=== PATIENT | female | born 1970 | race African-American/Black ===

== ENCOUNTER 2018-11-19 22:53 | Emergency (ER) | payer OTHER ==
[2018-11-19 23:13] VITALS: BP 98/64; PULSE 98; TEMP 98.9; BMI 23.3
--- NOTE | 2018-11-19 23:55 | PDOC ---
Attending Attestation - HPI HPI: This patient is a 48 year old female with PMHx of hypertension and asthma, crack cocaine use, stroke (2008), who presents with 1 week of URI symptoms and nosebleed. Patient states that on Friday she had a nosebleed, and had an episode of hematemesis. She was seen at [facility] and discharged home. Today she comes in for maliase, congestion, decreased PO intake, nausea, vomiting (non -bilious). She notes another nosebleed 30 mins prior to arriving. Denies any diarrhea, dysuria, chest pain, abdominal pain. <Thu Timmons - Last Filed: 11/20/18 00:06> - Resident Resident Name: Anshul Lama - ED Attending Attestation I have performed the following: I have examined & evaluated the patient, The case was reviewed & discussed with the resident, I agree w/resident's findings & plan, Exceptions are as noted - Physicial Exam PE: 11/20/18 00:13 GENERAL: Well-appearing, well-nourished. No apparent distress. HEENT: Normocephalic, atraumatic. PERRL, EOM intact. Nares dried, no blood/bleeding CARDIOVASCULAR: Normal S1, S2. Regular rate and rhythm. PULMONARY: Clear to auscultation bilaterally. ABDOMEN: Soft, non-distended, non-tender. EXTREMITIES: Normal ROM in all four extremities. No gross deformities. SKIN: Warm, dry. No rash NEUROLOGICAL: No focal neurological deficits. - Medical Decision Making 11/20/18 00:14 Patient states systemic symptoms improved Had episode of epistaxis 3 days ago and today both times self-limited, resolved w/o intervention Viral syndrome? URI? PNA possible but less likely, epistaxis likely 2/2 smoking , cold, mucosal drying, digital trauma symptomatic tx instruction on epistaxis No acute issues requiring further investigation or intervention <Tej Bowen - Last Filed: 11/20/18 01:07>
--- NOTE | 2018-11-20 00:03 | PDOC ---
History of Present Illness - General Chief Complaint: Cold Symptoms Stated Complaint: COLD SYMPTOMS - History of Present Illness Initial Comments: The patient is a 48F w/ a history of HTN and asthma who presents for evaluation of 1wk of cough, congestion, rhinorrhea, nausea, several episodes of vomiting, and epistaxis. The patient reports that on Friday she noted a nose bleed and subsequent vomiting. She also reports decreased PO intake since that time. She was evaluated at [facility] and was discharged the same evening w/o Rx. She reports continued URI symptoms. Today she noted walking outside, rhinorrhea, and recurrent epistaxis which then prompted her to call EMS. She states the bleeding stopped while in the ambulance Denies fevers, REICH, vision changes, chest pain, SOB, abdominal pain, diarrhea, dysuria, hematuria, or changes in sensation 11/20/18 00:02 Past History - Past Medical History Allergies/Adverse Reactions: Allergies Allergy/AdvReac Type Severity Reaction Status Date / Time No Known Drug Allergies Allergy Verified 04/24/15 21:07 ibuprofen [From Motrin] AdvReac Verified 11/19/18 23:13 strawberry [[place]] AdvReac Verified 11/19/18 23:13 Home Medications: Ambulatory Orders Albuterol Sulfate Inhaler - [Ventolin HFA Inhaler -] 2 inh PO Q4H #1 inh Azithromycin [Zithromax Z-ESAU (5 DAYS) -] 250 mg PO ASDIR #6 tablet 04/25/15 predniSONE [Deltasone -] 10 mg PO DAILY #10 tablet 04/25/15 Anemia: No Asthma: Yes (ON ALBUTEROL INHALER) Cancer: No Cardiac Disorders: No CVA: Yes (last stroke 2008 no residuals) COPD: No CHF: No Dementia: No Diabetes: No GI Disorders: No Disorders: No HTN: No Hypercholesterolemia: No Kidney Stones: No Liver Disease: No Seizures: No Thyroid Disease: No - Surgical History Abdominal Surgery: No Appendectomy: No Cardiac Surgery: No Cholecystectomy: No Lung Surgery: No Neurologic Surgery: No Orthopedic Surgery: No - Reproductive History PID: No - Immunization History Immunization Up to Date: Yes - Suicide/Smoking/Psychosocial Hx Smoking History: Current every day smoker Have you smoked in the past 12 months: Yes Number of Cigarettes Smoked Daily: 5 Information on smoking cessation initiated: No 'Breaking Loose' booklet given: 09/22/14 Hx Alcohol Use: No Drug/Substance Use Hx: No Substance Use Type: Cocaine Hx Substance Use Treatment: Yes (completed 28 days at [facility],4-5 years of abstinence) Review of Systems - Review of Systems Able to Perform ROS?: Yes Comments:: GENERAL/CONSTITUTIONAL: No fever or chills. No weakness HEAD, EYES, EARS, NOSE AND THROAT: No change in vision. No ear pain or discharge CARDIOVASCULAR: No chest pain RESPIRATORY: Denies hemoptysis_ GASTROINTESTINAL: +vomiting, deniesdiarrhea or constipation GENITOURINARY: No dysuria, frequency, or change in urination MUSCULOSKELETAL: +generalized intermittent myaliga SKIN: No rash NEUROLOGIC: No headache, vertigo, loss of consciousness, or change in strength/ sensation ENDOCRINE: No increased thirst. No abnormal weight change HEMATOLOGIC/LYMPHATIC: No anemia, easy bleeding, or history of blood clots ALLERGIC/IMMUNOLOGIC: No hives or skin allergy 11/20/18 00:13 Is the patient limited [place] proficient: No *Physical Exam - Vital Signs Last Vital Signs Temp Pulse Resp BP Pulse Ox 98.9 F 98 H 20 98/64 98 11/19/18 23:11 11/19/18 23:11 11/19/18 23:11 11/19/18 23:11 11/19/18 23:11 - Physical Exam Comments: GENERAL: Awake, alert, and fully oriented, in no acute distress HEAD: No signs of trauma, normocephalic, atraumatic EYES: PERRLA, EOMI, sclera anicteric, conjunctiva clear ENT: Hearing grossly normal, nares patent, no blood seen in nares or oropharynx , oropharynx clear without exudates. Moist mucosa LUNGS: No distress, speaks full sentences, clear to auscultation bilaterally HEART: Regular rate and rhythm, normal S1 and S2, no murmurs appreciated, peripheral pulses normal and equal bilaterally ABDOMEN: Soft, nontender, normoactive bowel sounds. No guarding, no rebound EXTREMITIES : Normal inspection, Normal range of motion, no edema. No clubbing or cyanosis NEUROLOGICAL: Cranial nerves II through XII grossly intact. Normal speech, no focal sensorimotor deficits SKIN: Warm, Dry, normal turgor, no rashes or lesions noted 11/20/18 00:14 Moderate Sedation - Procedure Monitoring Vital Signs: Procedure Monitoring Vital Signs Temperature 98.9 F 11/19/18 23:11 Pulse Rate 98 H 11/19/18 23:11 Respiratory Rate 20 11/19/18 23:11 Blood Pressure 98/64 11/19/18 23:11 O2 Sat by Pulse Oximetry (%) 98 11/19/18 23:11 Medical Decision Making - Medical Decision Making The patient is a 48F w/ a history of HTN and asthma who presents for evaluation of 1 week of cough, congestion, rhinnorhea with associated nausea, intermittent vomiting, and epistaxis. ED Course Patient tolerating PO in ED CXR to r/o PNA (Upreg) 11/20/18 00:15 Upreg neg 11/20/18 00:54 CXR w/o evidence of PNA, PNX, or vascular congestion Plan for D/C w/ PCP f/u Discharge instructions and return precautions given Patient in agreement and verbalizes understanding Dispo: home 11/20/18 01:06 *DC/Admit/Observation/Transfer Diagnosis at time of Disposition: URI (upper respiratory infection) Qualifiers: URI type: unspecified URI Qualified Code(s): J06.9 - Acute upper respiratory infection, unspecified - Discharge Dispostion Disposition: HOME Condition at time of disposition: Stable Decision to Admit order: No - Referrals [place] [facility] [place] [facility] [place] Group] - Patient Instructions Printed Discharge Instructions: DI for Viral Upper Respiratory Infection -- Adult Additional Instructions: You were seen in the Emergency Department for evaluation of a likely viral upper respiratory infection. Review the handout provided at discharge. Continue to take your medications as prescribed. Follow up with your primary care provider. Return to the Emergency Department if you develop worsening symptoms, fevers, vomiting, diarrhea, persistent bleeding, or any new/concerning symptoms. - Post Discharge Activity Forms/Work/School Notes: Back to Work
[2018-11-20] MEDS ORDERED: SODIUM CHLORIDE 0.9% 500 ML INFUS.BAG IV ONE (00:07)
[2018-11-20] MEDS ORDERED: SODIUM CHLORIDE NASAL SPRAY 44 ML BOTTLE NS ONE ×2 (00:08→01:14)
== END 2018-11-20 01:29 | disposition home or self-care (01) ==
LOC: JER 22:53
DX: J06.9 Acute upper respiratory infection, unspecified (principal); I10 Essential (primary) hypertension; J45.909 Unspecified asthma, uncomplicated; Z86.73 Personal history of transient ischemic attack (TIA), and cerebral infarction without residual deficits
CPT/HCPCS: 71045-TC-FY; 84703; 99281-25

== ENCOUNTER 2020-01-06 11:59 | Inpatient (IN) | payer SELFPAY ==
[2020-01-06] MEDS ORDERED: SODIUM CHLORIDE 0.9% 500 ML INFUS.BAG IV ONE ×3 (13:31→17:02)
[2020-01-06] MEDS ORDERED: ALBUTEROL SO4 2.5/IPRATROPIUM 0.5 INH SOL 3 ML VIAL.NEB. NEB ONE ×6 (13:34→20:11)
--- NOTE | 2020-01-06 14:07 | EKG ---
Test Reason : Blood Pressure : / mmHG Vent. Rate : 058 BPM Atrial Rate : 058 BPM P-R Int : 160 ms QRS Dur : 082 ms QT Int : 446 ms P-R-T Axes : 066 076 073 degrees QTc Int : 437 ms SINUS BRADYCARDIA POSSIBLE LEFT ATRIAL ENLARGEMENT CANNOT RULE OUT ANTERIOR INFARCT , AGE UNDETERMINED ABNORMAL ECG WHEN COMPARED WITH ECG OF 25-APR-2015 01:12, NONSPECIFIC T WAVE ABNORMALITY NO LONGER EVIDENT IN INFERIOR LEADS T WAVE INVERSION LESS EVIDENT IN ANTEROLATERAL LEADS QT HAS SHORTENED Confirmed by JAMES BUCKLEY, TERESA ([id number]) on 01/06/2020 2:06:42 PM Referred By: Confirmed By:TERESA RAMIREZ MD
--- NOTE | 2020-01-06 14:26 | PDOC ---
History of Present Illness - General Chief Complaint: Hemoptysis Stated Complaint: CHEST PAIN/WEAK Time Seen by Provider: 01/06/20 13:10 History Source: Patient Exam Limitations: No Limitations - History of Present Illness Initial Comments: 01/06/20 14:22 49-year-old female history of hypertension, asthma, hyperlipidemia, crack/cocaine abuse, MT status post stents on aspirin, COPD, rheumatoid arthritis, breast cancer with mets diagnosed 2016 currently not on any treatment, recent CVA 1 month ago was admitted at [facility] during this time. Patient reports productive cough x2 weeks with shortness of breath, body aches, weakness, subjective fever, chills and occasional dizziness. Also reports pink- tinged sputum when coughing. Not eating and drinking normally. ROS: GENERAL/CONSTITUTIONAL: Subjective fever, chills, weakness, dizziness HEAD, EYES, EARS, NOSE AND THROAT: No changes in vision, No ear pain or discharge, No sore throat CARDIOVASCULAR: Chest pain when coughing RESPIRATORY: Productive cough with occasional shortness of breath GASTROINTESTINAL: No pain, nausea, vomiting, diarrhea or constipation GENITOURINARY: No dysuria MUSCULOSKELETAL: No neck or back pain SKIN: No rash NEUROLOGIC: No headache, vertigo, loss of consciousness, or loss of sensation PE: GENERAL: ill-appearing, NAD HEAD: NCAT EYES: Pupils equal, round and reactive to light, sclera anicteric, conjunctiva clear ENT: pharynx: no erythema, no exudate, uvula midline NECK: supple, no lymphadenopathy CHEST: nontender RESP: Moderate wheezing throughout lung patel CARDIO: rrr, no m/g/r ABD: +BS, soft, nontender, non distended BACK: no midline spinal ttp, no CVAT EXTREMITIES: Normal range of motion, no edema NEUROLOGICAL: Normal speech, normal gait SKIN: Warm, Dry Is this a multiple visit Asthma Patient?: No Past History - Past Medical History Allergies/Adverse Reactions: Allergies Allergy/AdvReac Type Severity Reaction Status Date / Time No Known Drug Allergies Allergy Verified 01/06/20 12:30 ibuprofen [From Motrin] AdvReac Verified 01/06/20 12:30 strawberry [[place]] AdvReac Verified 01/06/20 12:30 Home Medications: Ambulatory Orders Albuterol Sulfate Inhaler - [Ventolin HFA Inhaler -] 2 inh PO Q4H #1 inh 04/25/15 Azithromycin [Zithromax Z-ESAU (5 DAYS) -] 250 mg PO ASDIR #6 tablet 04/25/15 predniSONE [Deltasone -] 10 mg PO DAILY #10 tablet 04/25/15 Anemia: No Asthma: Yes (ON ALBUTEROL INHALER) Cancer: No Cardiac Disorders: No CVA: Yes (last stroke 2008 no residuals) COPD: No CHF: No Dementia: No Diabetes: No GI Disorders: No Disorders: No HTN: No Hypercholesterolemia: No Kidney Stones: No Liver Disease: No Seizures: No Thyroid Disease: No - Surgical History Abdominal Surgery: No Appendectomy: No Cardiac Surgery: No Cholecystectomy: No Lung Surgery: No Neurologic Surgery: No Orthopedic Surgery: No - Reproductive History PID: No - Immunization History Immunization Up to Date: Yes - Psycho Social/Smoking Cessation Hx Smoking History: Current every day smoker Have you smoked in the past 12 months: Yes Number of Cigarettes Smoked Daily: 20 Information on smoking cessation initiated: No 'Breaking Loose' booklet given: 09/22/14 Hx Alcohol Use: Yes Drug/Substance Use Hx: Yes Substance Use Type: Cocaine Hx Substance Use Treatment: Yes (completed 28 days at [facility],4-5 years of abstinence) *Physical Exam - Vital Signs Last Vital Signs Temp Pulse Resp BP Pulse Ox 98.4 F 80 18 89/65 L 100 01/06/20 12:30 01/06/20 12:30 01/06/20 12:30 01/06/20 12:30 01/06/20 12:30 ED Treatment Course - LABORATORY CBC & Chemistry Diagram: 01/06/20 14:00 01/06/20 14:00 - RADIOLOGY Radiology Studies Ordered: Category Date Time Status CHEST PA & LAT [RAD] Stat Radiology 01/06/20 13:30 Ordered - Medications Given in the ED: ED Medications Discontinued Medications Generic Name Dose Route Start Last Admin Trade Name Freq PRN Reason Stop Dose Admin Albuterol/Ipratropium 1 amp 01/06/20 13:34 01/06/20 14:17 Duoneb - NEB 01/06/20 13:35 1 amp ONCE ONE Administration Albuterol/Ipratropium 1 amp 01/06/20 13:34 01/06/20 14:17 Duoneb - NEB 01/06/20 13:35 1 amp ONCE ONE Administration Albuterol/Ipratropium 1 amp 01/06/20 13:52 01/06/20 14:17 Duoneb - NEB 01/06/20 13:53 1 amp ONCE ONE Administration Sodium Chloride 1,000 ml 01/06/20 13:31 01/06/20 14:17 Normal Saline - IV 01/06/20 13:32 1,000 ml ONCE ONE Administration Medical Decision Making - Medical Decision Making 01/06/20 15:11 49-year-old female history of hypertension, asthma, hyperlipidemia, crack/cocaine abuse, MT status post stents on aspirin, COPD, rheumatoid arthritis, breast cancer with mets diagnosed 2016 currently not on any t reatment, recent CVA 1 month ago was admitted at [facility] during this time. Patient reports productive cough x2 weeks with shortness of breath, body aches, weakness, subjective fever, chills and occasional dizziness. Also reports pink-tinged sputum when coughing. Not eating and drinking normally. hypotensive in triage labs, blood cx added trop awaiting cxr will order vanc/zosyn IVF patient not feeling better after nebs Discussed case with Dr. Cisneros, signed out to Dr. Womack admit 01/06/20 15:16 Discharge - Discharge Information Problems reviewed: Yes Clinical Impression/Diagnosis: Shortness of breath, Cough - Follow up/Referral - Patient Discharge Instructions - Post Discharge Activity
[2020-01-06 15:00] LABS: BASO % 0.9 % (0-2.0); EOS % 3.2 % (0-4.5); HEMATOCRIT 39.7 % (32.4-45.2); HEMOGLOBIN 13.2 GM/dL (10.7-15.3); LYMPH % 18.9 % (8-40); MCH 30.3 pg (25.7-33.7); MCHC 33.3 g/dl (32.0-36.0); MEAN CELL VOLUME 91.2 fl (80-96); MEAN PLT VOLUME 8.4 fl (7.5-11.1); PLATELET COUNT 308 K/MM3 (134-434); RBC 4.36 M/mm3 (3.60-5.2); RDW 14.6 % (11.6-15.6); WHITE BLOOD COUNT 7.1 K/mm3 (4.0-10.0)
--- NOTE | 2020-01-06 15:08 | PDOC ---
Attending Attestation - Resident Resident Name: Todd Womack - ED Attending Attestation I have performed the following: I have examined & evaluated the patient, The case was reviewed & discussed with the resident, I agree w/resident's findings & plan, Exceptions are as noted - HPI HPI: 01/06/20 20:03 49y Fhx of htn, copd, hl, polysubstance abuse, CAD, recent CVA prestns with increasing sob/[place]/cough, body aches, generalized weakness, for the past 2 weeks since being discharged from [facility]. pt endorses blood tingued sputum with her cough. PE: General: thin appearing, no acute distress Pulm: b/l wheezing trhoughout lung patel, no acute respiratory distress, speaking complete sentences card: rrr, no mrgabd: soft nontender, nondistended, nore bound/guarding ext: no edema neuro: moving all 4 extermiteis spontaneously and symmetrically ddx - pna vs copd exacerbation - Physicial Exam PE: 01/10/20 19:23 see above - Medical Decision Making 01/06/20 20:26 pt original bp noted to be low - pt was given fluids, repeat bp improved pts ct with normal lungs wo signs of infiltrate pt admitted for copd exacerbation 01/06/20 20:26
[2020-01-06] MEDS ORDERED: VANCOMYCIN 1 GM in D5W (PRE-DOCKED) 1,000 MG/250 ML IVPB ONE (15:14)
[2020-01-06] MEDS ORDERED: PIPERACILLIN/TAZOB 4.5 GM 4.5 GM in DEXTROSE 5%-WATER 100 ML IVPB ONE (15:14)
[2020-01-06 15:17] LABS: EPI CELLS 10.4 /HPF (0-5/HPF); HYALINE CASTS 0 /lpf (0-8); URINE APPEARANCE CLEAR; URINE BACTERIA 167.2 /hpf (NEGATIVE); URINE BILIRUBIN NEGATIVE (NEGATIVE); URINE COLOR YELLOW; URINE GLUCOSE (UA) NEGATIVE (NEGATIVE); URINE KETONE NEGATIVE (NEGATIVE); URINE LEUK ESTERASE 1+ (NEGATIVE); URINE NITRITE NEGATIVE (NEGATIVE); URINE PROTEIN NEGATIVE (NEGATIVE); URINE RBC 2 /hpf (0-4); URINE UROBILINOGEN 0.2 mg/dL (0.2-1.0); URINE WBC 1 /hpf (0-5)
[2020-01-06 15:24] LABS: PROTHROMBIN TIME (PATIENT) 11.8 SEC (9.7-13.0)
[2020-01-06 15:26] LABS: ACTIVATED PTT 33.2 SECONDS (25.2-36.5)
--- NOTE | 2020-01-06 15:27 | PDOC ---
*Physical Exam - Vital Signs Last Vital Signs Temp Pulse Resp BP Pulse Ox 98.4 F 80 18 89/65 L 100 01/06/20 12:30 01/06/20 12:30 01/06/20 12:30 01/06/20 12:30 01/06/20 12:30 - Physical Exam General Appearance: Yes: Nourished, Appropriately Dressed, Moderate Distress HEENT: positive: Normal ENT Inspection. negative: Scleral Icterus (R), Scleral Icterus (L) Neck: positive: Trachea midline, Supple, Lymphadenopathy (R), Lymphadenopathy (L). negative: Decreased range of motion Respiratory/Chest: positive: Chest Tender, Respiratory Distress, Labored Respiration, Rapid RR, Decreased Breath Sounds, Rales (Diffuse rales and rhonchi associated with wheezing), Rhonchi, Wheezing (Di). negative: Lungs Clear, Normal Breath Sounds, Accessory Muscle Use Cardiovascular: positive: Regular Rhythm, Regular Rate, S1, S2 Vascular Pulses: Dorsalis-Pedis (R): 2+, Doralis-Pedis (L): 2+ Gastrointestinal/Abdominal: positive: Soft Rectal Exam: positive: deferred Lymphatic: positive: Adenopathy Musculoskeletal: positive: Normal Inspection. negative: CVA Tenderness, Decreased Range of Motion Extremity: positive: Normal Capillary Refill, Normal Inspection, Normal Range of Motion, Tender (Patient has extreme TTP on the right dorsal wrist as well as the left neck and shoulder region), Pelvis Stable Integumentary: positive: Normal Color, Dry, Warm Neurologic: positive: can labeler II-XII NML intact, Fully Oriented, Alert, Normal Mood/Affect, Normal Response, Motor Strength 5/5 Heart Score/ECG Review - History History: Slightly suspicious - Electrocardiogram EKG: Normal - Age Age: 45-65 - Risk Factors Risk Factors Heart Score: Yes Hx Hypercholesterolemia, Yes Hx Hypertension, Yes Smoking History Based on the list above the patient has:: >/=3 risk factors or Hx atherosclerotic disease - Troponin Troponin: </= normal limit - Score Heart Score - Total: 3 - ECG Intrepretation Rhythm: Regular Rhythm - [place]: Normal - P and NE Atrial Enlargement: Left Prominent R with upright T in V1 (true posterior RI): No - ST and T Early Repolarization: No Non Specific ST-T Wave changes: No Flattened T Waves: No Prolonged Q-T Interval: No Comment:: Qtc 437 - ECG Impressions Normal ECG: No Non-specific ST Elevation: No Ischemic Changes: No Bradycardia: Yes ED Treatment Course - LABORATORY CBC & Chemistry Diagram: 01/06/20 14:00 01/06/20 14:00 - ADDITIONAL ORDERS Additional order review: Laboratory Results 01/06/20 01/06/20 14:30 14:00 PT with INR 11.80 INR 1.00 PTT (Actin FS) 33.2 Urine Color Yellow Urine Appearance Clear Urine pH 5.0 Ur Specific Winter 1.024 Urine Protein Negative Urine Glucose (UA) Negative Urine Ketones Negative Urine Blood Trace Urine Nitrite Negative Urine Bilirubin Negative Urine Urobilinogen 0.2 Ur Leukocyte Esterase 1+ H Urine WBC (Auto) 1 Urine RBC (Auto) 2 Urine Casts (Auto) 0 U Epithel Cells (Auto) 10.4 Urine Bacteria (Auto) 167.2 01/06/20 14:00 RBC 4.36 MCV 91.2 MCHC 33.3 RDW 14.6 D MPV 8.4 Neutrophils % 67.0 Lymphocytes % 18.9 D Monocytes % 10.0 Eosinophils % 3.2 Basophils % 0.9 - Medications Given in the ED: ED Medications Discontinued Medications Generic Name Dose Route Start Last Admin Trade Name Freq PRN Reason Stop Dose Admin Albuterol/Ipratropium 1 amp 01/06/20 13:34 01/06/20 14:17 Duoneb - NEB 01/06/20 13:35 1 amp ONCE ONE Administration Albuterol/Ipratropium 1 amp 01/06/20 13:34 01/06/20 14:17 Duoneb - NEB 01/06/20 13:35 1 amp ONCE ONE Administration Albuterol/Ipratropium 1 amp 01/06/20 13:52 01/06/20 14:17 Duoneb - NEB 01/06/20 13:53 1 amp ONCE ONE Administration Sodium Chloride 1,000 ml 01/06/20 13:31 01/06/20 14:17 Normal Saline - IV 01/06/20 13:32 1,000 ml ONCE ONE Administration Medical Decision Making - Medical Decision Making Patient signed out to me from Dr. Bailon pending chest imaging and re-assessment. HPI: She endorses recent fevers, chills, weight loss, night sweats, nausea no emesis, hemoptysis, diffuse body pains, severe dorsal left hand pain, significan t right neck pain which travels down to her shoulder. Vital Signs Temp Pulse Resp BP Pulse Ox 98.4 F 80 18 89/65 L 100 01/06/20 12:30 01/06/20 12:30 01/06/20 12:30 01/06/20 12:30 01/06/20 12:30 On my assessment patient has diffuse Rhonchorous sounding lungs with diffuse wheezing and bibasilar crackles. Plan: analgesia, chest CT, Iv hydration, re-assess. Chest CT: Unremarkable. Re-assessment: Given patient's severe SOB, terrible sounding lung sounds this is likely a COPD vs Asthma exacerbation - Morphine for pain control - Steroids for COPD/Asthma Dispo: Admission to hospital Discharge - Discharge Information Problems reviewed: Yes Clinical Impression/Diagnosis: Shortness of breath, Cough COPD (chronic obstructive pulmonary disease) Qualifiers: COPD type: unspecified COPD Qualified Code(s): J44.9 - Chronic obstructive pulmonary disease, unspecified Condition: Stable - Admission Yes - Follow up/Referral - Patient Discharge Instructions - Post Discharge Activity
[2020-01-06] MEDS ORDERED: ACETAMINOPHEN 1000 MG/100 ML VIAL (NON FORMULARY) IVPB ONE (15:28)
[2020-01-06 15:41] LABS: ALBUMIN 3.2 g/dl (3.4-5.0); ALK PHOS 160 U/L (45-117); ANION GAP 4 MMOL/L (8-16); BILIRUBIN,TOTAL 0.2 mg/dL (0.2-1); BLOOD UREA NITROGEN 14.9 mg/dL (7-18); CALCIUM 9.4 mg/dL (8.5-10.1); CHLORIDE 106 mmol/L (98-107); CO2 29 mmol/L (21-32); CREATININE 0.9 mg/dL (0.55-1.3); GLUCOSE,RANDOM 96 mg/dL (74-106); POTASSIUM 4.4 mmol/L (3.5-5.1); SGOT/AST 21 U/L (15-37); SGPT/ALT 32 U/L (13-61); SODIUM 140 mmol/L (136-145); TOT PROT 6.9 g/dl (6.4-8.2)
[2020-01-06] MEDS ORDERED: VANCOMYCIN 1 GRAM (PRE-DOCKED) 1,000 MG/250 ML BAG IVPB ONE (15:43)
[2020-01-06] MEDS ORDERED: PIPERACILLIN/TAZOB 4.5 GM 4.5 GM/100 ML BAG IVPB ONE (15:43)
[2020-01-06] MEDS ORDERED: morphine CARPU-JECT 4 MG/1 ML DISP.SYRIN IVPUSH ONE (17:01)
[2020-01-06] MEDS ORDERED: methylPREDNISolone NA SUCC 125 MG/2 ML VIAL IVPB ONE (17:02)
[2020-01-06] MEDS ORDERED: MORPHINE SULFATE 2 MG/ML VIAL ONE (17:22)
[2020-01-06] MEDS ORDERED: ACETAMINOPHEN INJECTION 100 ML IVPB ONE (17:22)
[2020-01-06] MEDS ORDERED: methylPREDNISolone NA SUCC 125 MG/2 ML VIAL ONE (17:43)
[2020-01-06] MEDS ORDERED: ALBUTEROL SO4 0.083% IH SOL 2.5 MG/3 ML VIAL.NEB. NEB PRN (19:34)
--- NOTE | 2020-01-06 19:52 | PN ---
Teaching Attending Note Name of Resident: Sera Benavides ATTENDING PHYSICIAN STATEMENT I saw and evaluated the patient. I reviewed the resident's note and discussed the case with the resident. I agree with the resident's findings and plan as documented. SUBJECTIVE: poor historian CC: cough with hemoptysis HPI: 49 y/o lady with h/o CPD, HTn, astham, HLP, cocaine use,former smoker, metastatic breast cancer, [place], reported stroke, other medical problems, and recent hospitalization to [facility] for CP, who presented with cough, SOB , hemoptysis, and night sweats x 1-2 weeks . she also reported subjective fevers. cough is productive of yellow sputum with streaks of blood. chest and abd pain with cough . her sx started when she went to OSH but got worse after dc. she was d/c from [facility] on 12/18. She denies recent travel or sick contact. she was incarcerated for 3 years recently. She reports no diarrhea, but has occasional black stool. she takes ultivitamins. she does not know her meds she reports weakness in her R side isaac RLE from a stroke in 2017. she also had R ankle sx and difficulty with foot movement. she reports chronci numbness in R side as well . OBJECTIVE: anxious , cough , no sputum production . HEENT: No LAP, tenderness in L submandibular area. erythematouos oropharynx. no facial droop. MMM. CV: RRR, Lungs: generalized wheezing . no crackles or rales Abd: sfot, TTP in L periumbilical area. no rebound . voluntory guarding Ext : No edema or erythema. dry skin on feet . No fungal infection neuro: no facial droop. EOMI, round equal pupils , reactive to light . uvula and tongue at mid line Strength: RUE: not cooperative as she has the iV there and has pain LUE: 5/5 shoudler shrug, biceps , triceps RLE: 4/5 hip flexion , knee flexion /extension. 2/5 ankle dorsiflexion and plantar flexion. LLE: 5/5 hip flexion , knee flexion /extension. 5/5 ankle dorsiflexion and plantar flexion. sensation to light touch decreased in RLE and RUE. and L sided anterior chest wall. ASSESSMENT AND PLAN: 49 y/o lady with h/o CPD, HTn, astham, HLP, cocaine use,former smoker, metastatic breast cancer, [place], reported stroke, other medical problems, and recent hospitalization to [facility] for CP, who presented with cough, SOB , hemoptysis, and night sweats x 1-2 weeks . 1- SOB, cough, and hemoptysis : due to COPD exacerbation and irritation of the airways. No evidence of PNA on CT scan. no masses or cavitary lesions. small nodule reported in R lung base , could not be seen on my review but unlikely to be responsible for hemoptysis. TB is not suspected at this time. flu neg . no fever or leukocytosis . No med iastinal LAP to suggest lymphoma . monitor night sweats /fever . - start nebs and steroids - azithro 250 x 3 dyas for anti-inflammatory effect - She agreed to HIV testing - check QTF gold - send sputum cx - blod cx was sent - hold off any further Abx - Pulm consult 2- Reported hx of melena: likley due to iron containing MVT pills. NL HB . - check OB ins stool - monitor HB . - work up as out pt if no drop in HB 3- H/o HTN: will call her pharmacy to confirm meds 4- H/o CVA , neuro exam as above. - will confirm her meds 5- H/o [place]: confirm meds 6- DVT PX : heparin GI px : start PPI
--- NOTE | 2020-01-06 20:05 | HP ---
CHIEF COMPLAINT: productive cough PCP: Scott Garcia HISTORY OF PRESENT ILLNESS: 49 yo F PMH of HTN, Asthma, HLD, crack cocaine use, [place] ( s/p stent 2014), COPD, RA, breast Ca w/ mets ( 2014) , recent hospitalization for chest pain / EKG changes? at [facility] 12/18. Pt is stating that for 2 weeks she has had a productive cough. she states that she sometimes has hemoptysis. she states that when she has a coughing spell she gets dizzy and chest pain. she states that she also has been having night sweats, lost 10 pounds in 2 weeks, body aches. she denies recent travel or sick contacts. she states she does not have a nebulizer at home. she states that she has not seen her primary care or oncologist in over a year. pt denies requiring intubation for copd/ asthma ER course was notable for: (1)CT chest (2)2 L IVF, Bcx, U cx (3)IV Vanc, Zosyn Recent Travel:denies PAST MEDICAL HISTORY: see HPI PAST SURGICAL HISTORY: C section Social History: Smoking:prior hx, questionable current use Alcohol:denies Drugs: states someone slipped crack cocaine to her Allergies No Known Drug Allergies Allergy (Verified 01/06/20 12:30) ibuprofen [From Motrin] Adverse Reaction (Verified 01/06/20 12:30) strawberry [[place]] Adverse Reaction (Verified 01/06/20 12:30) HOME MEDICATIONS: Home Medications Medication Instructions Recorded Albuterol Sulfate Inhaler - 2 inh PO Q4H #1 inh 04/25/15 [Ventolin HFA Inhaler -] Azithromycin [Zithromax Z-ESAU (5 250 mg PO ASDIR #6 tablet 04/25/15 DAYS) -] predniSONE [Deltasone -] 10 mg PO DAILY #10 tablet 04/25/15 REVIEW OF SYSTEMS CONSTITUTIONAL: Absent: fever, chills, diaphoresis, generalized weakness, malaise, loss of appetite, weight change HEENT: Absent: rhinorrhea, nasal congestion, throat pain, throat swelling, difficulty swallowing, mouth swelling, ear pain, eye pain, visual changes CARDIOVASCULAR: Absent: chest pain, syncope, palpitations, irregular heart rate, lightheadedness, peripheral edema RESPIRATORY: Absent: cough, shortness of breath, dyspnea with exertion, orthopnea, wheezing, stridor, hemoptysis GASTROINTESTINAL: Absent: abdominal pain, abdominal distension, nausea, vomiting, diarrhea, constipation, melena, hematochezia GENITOURINARY: Absent: dysuria, frequency, urgency, hesitancy, hematuria, flank pain, genital pain MUSCULOSKELETAL: Absent: myalgia, arthralgia, joint swelling, back pain, neck pain SKIN: Absent: rash, itching, pallor HEMATOLOGIC/IMMUNOLOGIC: Absent: easy bleeding, easy bruising, lymphadenopathy, frequent infections ENDOCRINE: Absent: unexplained weight gain, unexplained weight loss, heat intolerance, cold intolerance NEUROLOGIC: Absent: headache, focal weakness or paresthesias, dizziness, unsteady gait, seizure, mental status changes, bladder or bowel incontinence PSYCHIATRIC: Absent: anxiety, depression, suicidal or homicidal ideation, hallucinations. PHYSICAL EXAMINATION Vital Signs - 24 hr 01/06/20 01/06/20 12:30 17:57 Temperature 98.4 F 98.3 F Pulse Rate 80 Pulse Rate [ 83 Apical] Respiratory 18 18 Rate Blood Pressure 89/65 L Blood Pressure 113/72 [Right Arm] O2 Sat by Pulse 100 99 Oximetry (%) GENERAL: Awake, alert, and fully oriented, in no acute distress. HEAD: Normal with no signs of trauma. EYES: Pupils equal, round and reactive to light, extraocular movements intact EARS, NOSE, THROAT: poor dentation, Moist mucous membranes. NECK: Normal range of motion, supple without lymphadenopathy, JVD, or masses. LUNGS: Breath sounds equal, rhonchi and wheezes b/l , and no crackles. No accessory muscle use. + productive cough HEART: Regular rate and rhythm, normal S1 and S2 without murmur ABDOMEN: Soft, tender to LUQ , not distended, normoactive bowel sounds, no guarding, no rebound, no masses. MUSCULOSKELETAL: Normal range of motion at all joints. No bony deformities or tenderness. No CVA tenderness. UPPER EXTREMITIES: 2+ pulses, warm, well-perfused. No cyanosis. No clubbing. No peripheral edema. LOWER EXTREMITIES: 2+ pulses, warm, well-perfused. No calf tenderness. No peripheral edema. NEUROLOGICAL: Cranial nerves II-XII intact. Normal speech SKIN: Warm, dry, normal turgor, hyperpigmented lesions throughout Laboratory Last Values WBC 7.1 K/mm3 (4.0-10.0) 01/06/20 14:00 RBC 4.36 M/mm3 (3.60-5.2) 01/06/20 14:00 Hgb 13.2 GM/dL (10.7-15.3) 01/06/20 14:00 Hct 39.7 % (32.4-45.2) D 01/06/20 14:00 MCV 91.2 fl (80-96) 01/06/20 14:00 MCH 30.3 pg (25.7-33.7) D 01/06/20 14:00 MCHC 33.3 g/dl (32.0-36.0) 01/06/20 14:00 RDW 14.6 % (11.6-15.6) D 01/06/20 14:00 Plt Count 308 K/MM3 (134-434) 01/06/20 14:00 MPV 8.4 fl (7.5-11.1) 01/06/20 14:00 Absolute Neuts (auto) 4.7 K/mm3 (1.5-8.0) 01/06/20 14:00 Neutrophils % 67.0 % (42.8-82.8) 01/06/20 14:00 Lymphocytes % 18.9 % (8-40) D 01/06/20 14:00 Monocytes % 10.0 % (3.8-10.2) 01/06/20 14:00 Eosinophils % 3.2 % (0-4.5) 01/06/20 14:00 Basophils % 0.9 % (0-2.0) 01/06/20 14:00 Nucleated RBC % 0 % (0-0) 01/06/20 14:00 PT with INR 11.80 SEC (9.7-13.0) 01/06/20 14:00 INR 1.00 (0.83-1.09) 01/06/20 14:00 PTT (Actin FS) 33.2 SECONDS (25.2-36.5) 01/06/20 14:00 Sodium 140 mmol/L (136-145) 01/06/20 14:00 Potassium 4.4 mmol/L (3.5-5.1) 01/06/20 14:00 Chloride 106 mmol/L (98-107) 01/06/20 14:00 Carbon Dioxide 29 mmol/L (21-32) 01/06/20 14:00 Anion Gap 4 MMOL/L (8-16) L 01/06/20 14:00 BUN 14.9 mg/dL (7-18) 01/06/20 14:00 Creatinine 0.9 mg/dL (0.55-1.3) 01/06/20 14:00 Est GFR (CKD-EPI)AfAm 87.63 01/06/20 14:00 Est GFR (CKD-EPI)NonAf 75.61 01/06/20 14:00 Random Glucose 96 mg/dL (74-106) 01/06/20 14:00 Lactic Acid 1.2 mmol/L (0.4-2.0) 01/06/20 14:10 Calcium 9.4 mg/dL (8.5-10.1) 01/06/20 14:00 Total Bilirubin 0.2 mg/dL (0.2-1) 01/06/20 14:00 AST 21 U/L (15-37) 01/06/20 14:00 ALT 32 U/L (13-61) 01/06/20 14:00 Alkaline Phosphatase 160 U/L (45-117) H 01/06/20 14:00 Creatine Kinase 207 U/L (26-192) H 01/06/20 14:00 Creatine Kinase Index 1.1 % (0.0-5.0) 01/06/20 14:00 CK-MB (CK-2) 2.4 ng/mL (0.5-3.6) 01/06/20 14:00 Troponin I < 0.02 ng/ml (0.00-0.05) 01/06/20 14:00 Total Protein 6.9 g/dl (6.4-8.2) 01/06/20 14:00 Albumin 3.2 g/dl (3.4-5.0) L 01/06/20 14:00 Urine Color Yellow 01/06/20 14:30 Urine Appearance Clear 01/06/20 14:30 Urine pH 5.0 (5.0-8.0) 01/06/20 14:30 Ur Specific [place] 1.024 (1.010-1.035) 01/06/20 14:30 Urine Protein Negative (NEGATIVE) 01/06/20 14:30 Urine Glucose (UA) Negative (NEGATIVE) 01/06/20 14:30 Urine Ketones Negative (NEGATIVE) 01/06/20 14:30 Urine Blood Trace (NEGATIVE) 01/06/20 14:30 Urine Nitrite Negative (NEGATIVE) 01/06/20 14:30 Urine Bilirubin Negative (NEGATIVE) 01/06/20 14:30 Urine Urobilinogen 0.2 mg/dL (0.2-1.0) 01/06/20 14:30 Ur Leukocyte Esterase 1+ (NEGATIVE) H 01/06/20 14:30 Urine WBC (Auto) 1 /hpf (0-5) 01/06/20 14:30 Urine RBC (Auto) 2 /hpf (0-4) 01/06/20 14:30 Urine Casts (Auto) 0 /lpf (0-8) 01/06/20 14:30 U Epithel Cells (Auto) 10.4 /HPF (0-5/HPF) 01/06/20 14:30 Urine Bacteria (Auto) 167.2 /hpf (NEGATIVE) 01/06/20 14:30 Influenza A (Rapid) Negative (Negative) 01/06/20 17:45 Influenza B (Rapid) Negative (Negative) 01/06/20 17:[address]: Impression: Solitary noncalcified 0.5 x 0.3 cm right lower lobe subpleural pulmonary nodule. Correlation with 3 month follow-up CT is suggested unless a prior CT study is available from a different facility for direct comparison. Small right apical subpleural bulla. ASSESSMENT/PLAN: 49 yo F PMH of HTN, Asthma, HLD, crack cocaine use, [place] ( s/p stent 2014), COPD, RA, breast Ca w/ mets ( 2014) , recent hospitalization for chest pain / EKG changes? at [facility] 12/18. Pt is stating that for 2 weeks she has had a productive cough.pt is admitted for acute copd exacerbation Acute respiratory failure 2/2 Acute COPD Exacerbaion - CT chest reviewed - c/w solumedrol 40 BID - Azithromycin 250 daily x 3 days - Duonebs/ ventolin - pending Cultures - pending QTF - pulm consult -HIV testing Hypertension - continue to monitor - hold BP meds as pt initially presented hypotensive - will need to confirm home medications Hx of NM, Hx of CVA - will confirm home meds - will obtain records from [facility] F/E/N - monitor lytes - low sodium diet DVT ppx: Hep GI ppx: protonix Dispo: med/surg Visit type - Emergency Visit Emergency Visit: Yes ED Registration Date: 01/06/20 Care time: The patient presented to the Emergency Department on the above date and was hospitalized for further evaluation of their emergent condition. - New Patient This patient is new to me today: Yes Date on this admission: 01/06/20 - Critical Care Critical Care patient: No ATTENDING PHYSICIAN STATEMENT I saw and evaluated the patient. I reviewed the resident's note and discussed the case with the resident. I agree with the resident's findings and plan as documented. SUBJECTIVE: OBJECTIVE: ASSESSMENT AND PLAN:
[2020-01-06] MEDS: ALBUTEROL SO4 2.5/IPRATROPIUM 0.5 INH SOL 3 ML VIAL.NEB. NEB SCH (20:12)
[2020-01-06] MEDS ORDERED: HEPARIN NA (PORCINE) 5,000 UNITS/ML 1ML VIAL ONE (21:20)
[2020-01-06] MEDS ORDERED: methylPREDNISolone NA SUCC 40 MG/1 ML VIAL ONE (21:21)
[2020-01-06] MEDS: methylPREDNISolone NA SUCC 40 MG/1 ML VIAL IVPUSH SCH (21:40)
[2020-01-06] MEDS: HEPARIN NA (PORCINE) 5,000 UNITS/ML 1ML VIAL SQ SCH (21:40)
[2020-01-07] MEDS ORDERED: methylPREDNISolone NA SUCC 40 MG/1 ML VIAL IVPUSH SCH (02:00)
[2020-01-07 02:23] VITALS: BMI 23.3
[2020-01-07] MEDS ORDERED: ACETAMINOPHEN 1000 MG/100 ML VIAL (NON FORMULARY) IVPB ONE (03:58)
[2020-01-07] MEDS: HEPARIN NA (PORCINE) 5,000 UNITS/ML 1ML VIAL SQ SCH ×3 (06:33→21:39)
[2020-01-07] MEDS: ALBUTEROL SO4 2.5/IPRATROPIUM 0.5 INH SOL 3 ML VIAL.NEB. NEB SCH ×4 (08:10→21:13)
[2020-01-07] MEDS ORDERED: BENZOCAINE/MENTH/CETYLPYRD CL 1 EACH LOZENGE MM PRN (08:25)
[2020-01-07] MEDS ORDERED: MORPHINE SULFATE 2 MG/ML VIAL IVPUSH PRN (08:26)
[2020-01-07 08:31] LABS: BASO % 0.3 % (0-2.0); HEMATOCRIT 36.2 % (32.4-45.2); LYMPH % 12.2 % (8-40); MCH 30.4 pg (25.7-33.7); MCHC 33.2 g/dl (32.0-36.0); MEAN CELL VOLUME 91.8 fl (80-96); MEAN PLT VOLUME 8.7 fl (7.5-11.1); MONO % 1.8 % (3.8-10.2); NEUT % 85.7 % (42.8-82.8); PLATELET COUNT 255 K/MM3 (134-434); RBC 3.95 M/mm3 (3.60-5.2); RDW 14.5 % (11.6-15.6); WHITE BLOOD COUNT 5.1 K/mm3 (4.0-10.0)
[2020-01-07 09:13] LABS: ALBUMIN 2.9 g/dl (3.4-5.0); BILIRUBIN,TOTAL 0.1 mg/dL (0.2-1); BLOOD UREA NITROGEN 17.7 mg/dL (7-18); CALCIUM 9.1 mg/dL (8.5-10.1); MAGNESIUM 2.1 mg/dL (1.8-2.4); POTASSIUM 4.1 mmol/L (3.5-5.1); TOT PROT 6.4 g/dl (6.4-8.2)
[2020-01-07] MEDS ORDERED: FLU VACCINE QUAD 60 MCG/0.5 ML (MDV 19-20) IM ONE (10:00)
[2020-01-07] MEDS ORDERED: PT OWN MED DRAWER 7, Y5N ONE (10:25)
[2020-01-07] MEDS: methylPREDNISolone NA SUCC 40 MG/1 ML VIAL IVPUSH SCH ×2 (10:36→21:39)
[2020-01-07] MEDS: PANTOPRAZOLE 40 MG TABLET PO SCH (10:36)
[2020-01-07] MEDS: AZITHROMYCIN 250 MG TABLET PO SCH (10:36)
[2020-01-07] MEDS: traMADol HCL 50 MG TABLET PO PRN (12:13)
--- NOTE | 2020-01-07 14:26 | PN ---
Physical Exam: SUBJECTIVE: Patient seen and examined at bedside. pt states she is still having chest pain but her cough is improving. her chest pain is worse when she coughs. OBJECTIVE: Vital Signs Period Temp Pulse Resp BP Sys/Gibson Pulse Ox Last 24 Hr 97.6 F-98.3 F 66-83 16-18 107-129/66-80 99-100 GENERAL: The patient is awake, alert, and fully oriented, in no acute distress. HEAD: Normal with no signs of trauma. ENT: tender r lymphadenopathy NECK: Trachea midline, full range of motion, supple. LUNGS: Breath sounds equal, wheezes throughout, no accessory muscle use. HEART: Regular rate and rhythm, S1, S2 ABDOMEN: Soft, nontender, nondistended, normoactive bowel sounds, no guarding EXTREMITIES: 2+ pulses, warm, well-perfused, no edema. NEUROLOGICAL: Cranial nerves II through XII grossly intact. Normal speech CBC, BMP 01/07/20 06:48 01/07/20 06:48 Current Medications Albuterol Sulfate (Ventolin 0.083% Nebulizer Soln -) 1 amp NEB Q4H PRN PRN Reason: SHORT OF BREATH/WHEEZING Last Admin: 01/07/20 04:10 Dose: 1 amp Documented by: Albuterol/Ipratropium (Duoneb -) 1 amp NEB RQID [facility] Last Admin: 01/07/20 12:10 Dose: Not Given Documented by: Azithromycin (Zithromax -) 250 mg PO DAILY [facility] Last Admin: 01/07/20 10:36 Dose: 250 mg Documented by: Benzocaine/Menthol (Cepacol Lozenge -) 1 each MM PRN PRN PRN Reason: SORE THROAT Guaifenesin (Robitussin -) 10 ml PO Q6H PRN PRN Reason: COUGH Heparin Sodium (Porcine) (Heparin -) 5,000 unit SQ TID [facility] Last Admin: 01/07/20 06:33 Dose: 5,000 unit Documented by: Methylprednisolone Sodium Succinate (Solu-Medrol -) 40 mg IVPUSH BID [facility] Last Admin: 01/07/20 10:36 Dose: 40 mg Documented by: Pantoprazole Sodium (Protonix -) 40 mg PO DAILY [facility] Last Admin: 01/07/20 10:36 Dose: 40 mg Documented by: Tramadol HCl (Ultram -) 50 mg PO Q6H PRN PRN Reason: PAIN LEVEL 7 - 10 Last Admin: 01/07/20 12:13 Dose: [address]: Impression: Solitary noncalcified 0.5 x 0.3 cm right lower lobe subpleural pulmonary nodule. Correlation with 3 month follow-up CT is suggested unless a prior CT study is available from a different facility for direct comparison. Small right apical subpleural bulla. ASSESSMENT/PLAN: 49 yo F PMH of HTN, Asthma, HLD, crack cocaine use, [place] ( s/p stent 2014), COPD, RA, breast Ca w/ mets ( 2014) , recent hospitalization for chest pain / EKG changes? at [facility] 12/18. Pt is stating that for 2 weeks she has had a productive cough.pt is admitted for acute copd exacerbation Acute respiratory failure 12/05 Acute COPD Exacerbaion - CT chest reviewed - c/w solumedrol 40 BID - Azithromycin 250 daily x 3 days - Duonebs/ ventolin - pending Cultures - pending QTF - pulm consult -HIV testing - respiratory panel pending - cepacol/ robitussin Hypertension - continue to monitor - hold BP meds as pt initially presented hypotensive - will need to confirm home medications Hx of ME, Hx of CVA - will confirm home meds - will obtain records from [facility] F/E/N - monitor lytes - low sodium diet DVT ppx: Hep GI ppx: protonix Dispo: med/surg Visit type - Emergency Visit Emergency Visit: No - New Patient This patient is new to me today: No - Critical Care Critical Care patient: No - Discharge Referral Referred to [facility] Med P.C.: No ATTENDING PHYSICIAN STATEMENT I saw and evaluated the patient. I reviewed the resident's note and discussed the case with the resident. I agree with the resident's findings and plan as documented. SUBJECTIVE: OBJECTIVE: ASSESSMENT AND PLAN:
[2020-01-07] MEDS: guaiFENesin 200 MG/10 ML 10 ML UNIT-DOSE CUPS PO PRN (14:56)
--- NOTE | 2020-01-07 15:10 | PN ---
Progress Note (short form) - Note Progress Note: PULMONARY CONSULTATION DICTATED 01/07/20 IMP COPD/ASTHMA EXACERBATION EXACERBATION HEMOPTYSIS ? BRONCHITIS RLL NODULE H/O BREAST CA HLD HTN RA H/O CVA PLAN ABX O2 STEROIDS INHALED BRONCHODILATORS CULTURES F/U CHEST CT [address] SHAW Problem List - Problems (1) COPD exacerbation Code(s): J44.1 - CHRONIC OBSTRUCTIVE PULMONARY DISEASE W (ACUTE) EXACERBATION (2) Asthma with COPD with exacerbation Code(s): J44.1 - CHRONIC OBSTRUCTIVE PULMONARY DISEASE W (ACUTE) EXACERBATION; J45.901 - UNSPECIFIED ASTHMA WITH (ACUTE) EXACERBATION (3) Cough Code(s): R05 - COUGH (4) Shortness of breath Code(s): R06.02 - SHORTNESS OF BREATH (5) Bronchitis Code(s): J40 - BRONCHITIS, NOT SPECIFIED ACUTE OR CHRONIC (6) Crack cocaine use Code(s): F14.90 - COCAINE USE, UNSPECIFIED, UNCOMPLICATED (7) Hemoptysis Code(s): R04.2 - HEMOPTYSIS (8) Hemoptysis Code(s): R04.2 - HEMOPTYSIS
--- NOTE | 2020-01-07 16:38 | CONS ---
DATE OF CONSULTATION: 01/07/2020 PULMONARY CONSULTATION REFERRING PHYSICIAN: Martinez Benavides MD. HISTORY OF PRESENT ILLNESS: The patient is a 49-year-old -[place] female past medical history of asthma, COPD, cocaine use, ASHD status post VA, status post stent in 2014, CVA, history of breast CA status post left mastectomy, hypertension, hyperlipidemia, tobacco use, admitted to [facility] with complaint of cough, chest congestion. Patient was recently hospitalized to [facility] secondary to EKG changes on December 18. Since that time, she has had cough productive of yellowish sputum, episodes of blood-tinged sputum,subjective fevers and weight loss, approximately 10 pounds over the past 2 weeks with generalized body aches. She said she has a fever, has not actually quantified it. Patient presented to the emergency room. In the ER, she underwent a CAT scan of the chest which revealed no evidence of pneumonia, which revealed small pulmonary nodule, 5 mm, in the right lower lobe. Patient initially started on broad-spectrum antibiotics as well as IV steroids, good clinical improvement. PAST MEDICAL HISTORY: Again includes asthma, COPD, hypertension, hyperlipidemia, ASHD status post VA, history of breast CA status post mastectomy, recent CVA, hyperlipidemia, hypertension. REVIEW OF SYSTEMS: Positive shortness of breath, positive cough, positive sputum, positive hemoptysis, positive wheezing, positive congestion, has subjective fevers. No abdominal pain, has chest pain associated with cough. CURRENT MEDICATIONS: Include: 1. Solu-Medrol 40 b.i.d. 2. Zithromax. 3. Heparin subcutaneous. 4. Albuterol. 5. DuoNeb. 6. Robitussin. 7. Ultram. 8. Protonix. PHYSICAL EXAMINATION: General: The patient is a well-developed, well-nourished female, awake, alert, in no acute distress. She is afebrile. Vital Signs: Blood pressure 116/80, respiratory rate 20, O2 saturation is 100% on room air. HEENT: Normocephalic, atraumatic. Neck: Supple. Heart: Regular S1, S2. Chest: A few scattered wheezes. Abdomen: Soft, bowel sounds positive. Extremities: No cyanosis, edema. LABORATORY: BUN is 17, creatinine 1.0. WBC is 5.1, hemoglobin 12, hematocrit 36.2 with a platelet count of 255,000. Chest CT as noted earlier. IMPRESSION: 1. Asthma, chronic obstructive pulmonary disease exacerbation. 2. Hemoptysis likely secondary to bronchitis. 3. Right lower lobe nodule, ? inflammatory. 4. History of breast carcinoma. 5. Hyperlipidemia. 6. Hypertension. 7. Rheumatoid. 8. history of cerebrovascular accident. PLAN: Antibiotics. Supplemental O2. IV steroids. Inhaled bronchodilators. Obtain cultures. Follow chest CT Three months document the stability of pulmonary nodule. Quantify hemoptysis. ETHEL SHAW M.D. [id number] MTDD
--- NOTE | 2020-01-07 18:06 | PN ---
Teaching Attending Note Name of Resident: Sera Benavides ATTENDING PHYSICIAN STATEMENT I saw and evaluated the patient. I reviewed the resident's note and discussed the case with the resident. I agree with the resident's findings and plan as documented. SUBJECTIVE: No fever or chills. feels generalized aches and wants pain meds. tylenol did not work and she can't take NSAIDS SOB has improved. cough continues . chest discomfort with cough OBJECTIVE: NAD CV: RRR Lungs: generalized wheezing. no crackles or rales Abd: soft, TTP in L periumbilical area. no rebound . no guarding Ext : No edema or erythema. ASSESSMENT AND PLAN: 49 y/o lady with h/o CPD, HTn, astham, HLP, cocaine use,former smoker, metastatic breast cancer, [place], reported stroke, other medical problems, and recent hospitalization to [facility] for CP, who presented with cough, SOB , he moptysis, and night sweats x 1-2 weeks . 1- Acute COPD exacerbation: - slightly improved - cont steroids at current dose - cont nebs - add advair - add cough syrup. - no hemoptysis today . Hb stable - QTF gold pending - cont azithro x total of 3 days ( day 2 /3) - follow sputum cx 2- Reported hx of melena: likely due to iron containing MVT pills. NL HB . - OB ins stool pending. - work up as out pt if no drop in HB 3- H/o HTN: resume HCTZ 4- H/o CVA , - cont ASA and statin 5- H/o [place]:ASA and statin 6- DVT PX : heparin GI px : start PPI
[2020-01-07] MEDS: FLUTICASONE/SALMETEROL 100 MCG/50 MCG DISKUS IH SCH (21:39)
[2020-01-07] MEDS: ATORVASTATIN CA 40 MG TABLET (FP) PO SCH (21:39)
[2020-01-08] MEDS: HEPARIN NA (PORCINE) 5,000 UNITS/ML 1ML VIAL SQ SCH ×3 (06:44→22:33)
[2020-01-08] MEDS: ALBUTEROL SO4 2.5/IPRATROPIUM 0.5 INH SOL 3 ML VIAL.NEB. NEB SCH ×4 (07:25→19:36)
[2020-01-08 08:08] LABS: HEMATOCRIT 34.4 % (32.4-45.2); HEMOGLOBIN 11.3 GM/dL (10.7-15.3); MCH 30.1 pg (25.7-33.7); MCHC 32.8 g/dl (32.0-36.0); MEAN CELL VOLUME 91.8 fl (80-96); MEAN PLT VOLUME 9.2 fl (7.5-11.1); PLATELET COUNT 253 K/MM3 (134-434); RBC 3.74 M/mm3 (3.60-5.2); RDW 14.5 % (11.6-15.6); WHITE BLOOD COUNT 11.2 K/mm3 (4.0-10.0)
[2020-01-08 08:09] LABS: BLOOD UREA NITROGEN 16.2 mg/dL (7-18); CALCIUM 8.6 mg/dL (8.5-10.1); CREATININE 0.8 mg/dL (0.55-1.3); MAGNESIUM 2.2 mg/dL (1.8-2.4); PHOSPHOROUS 3.3 mg/dL (2.5-4.9); POTASSIUM 4.3 mmol/L (3.5-5.1)
[2020-01-08] MEDS: AZITHROMYCIN 250 MG TABLET PO SCH (09:30)
[2020-01-08] MEDS: guaiFENesin 200 MG/10 ML 10 ML UNIT-DOSE CUPS PO PRN (09:30)
[2020-01-08] MEDS: PANTOPRAZOLE 40 MG TABLET PO SCH (09:30)
[2020-01-08] MEDS: methylPREDNISolone NA SUCC 40 MG/1 ML VIAL IVPUSH SCH ×2 (09:30→22:32)
[2020-01-08] MEDS: ASPIRIN COATED 81 MG TABLET.EC PO SCH (09:30)
[2020-01-08] MEDS: HYDROCHLOROTHIAZIDE 25 MG TABLET (FP) PO SCH (09:30)
[2020-01-08] MEDS: traMADol HCL 50 MG TABLET PO PRN (09:31)
--- NOTE | 2020-01-08 09:33 | PN ---
Physical Exam: SUBJECTIVE: Patient seen and examined. Pt. again states that she is intense pain. She states that she used to smoke 7 packs a day. She states that the pain was worse last night because of the rain. Of note Pt. was sitting up in bed watching TV when I initially walked in, in no acute distress. OBJECTIVE: Vital Signs Period Temp Pulse Resp BP Sys/Gibson Pulse Ox Last 24 Hr 97.7 F-98.1 F 72-75 18-18 105-116/67-80 100 GENERAL: The patient is awake, alert, and fully oriented, in no acute distress. HEAD: Normal with no signs of trauma. ENT: tender r lymphadenopathy NECK: Trachea midline, full range of motion, supple. LUNGS: Breath sounds equal, wheezes throughout, no accessory muscle use. HEART: Regular rate and rhythm, S1, S2 ABDOMEN: Soft, nontender, nondistended, normoactive bowel sounds, no guarding EXTREMITIES: 2+ pulses, warm, well-perfused, no edema. NEUROLOGICAL: Cranial nerves II through XII grossly intact. Normal speech Laboratory Results - last 24 hr 01/06/20 01/08/20 01/08/20 22:05 06:30 06:30 WBC 11.2 H RBC 3.74 Hgb 11.3 Hct 34.4 MCV 91.8 MCH 30.1 MCHC 32.8 RDW 14.5 Plt Count 253 MPV 9.2 Sodium 141 Potassium 4.3 Chloride 109 H Carbon Dioxide 26 Anion Gap 6 L BUN 16.2 Creatinine 0.8 Est GFR (CKD-EPI)AfAm 101.04 Est GFR (CKD-EPI)NonAf 87.18 Random Glucose 136 H Calcium 8.6 Phosphorus 3.3 Magnesium 2.2 HIV 1&2 Ag/Ab, 4th Gen Non reactive Active Medications Generic Name Dose Route Start Last Admin Trade Name Freq PRN Reason Stop Dose Admin Acetaminophen 650 mg 01/07/20 20:14 Tylenol - PO Q6H PRN Fever Or Pain 1-5 Albuterol Sulfate 1 amp 01/06/20 19:34 01/07/20 04:10 Ventolin 0.083% Nebulizer Soln - NEB 1 amp Q4H PRN Administration SHORT OF BREATH/WHEEZING Albuterol/Ipratropium 1 amp 01/06/20 20:00 01/08/20 07:25 Duoneb - NEB 1 amp RQID [facility] Administration Aspirin 81 mg 01/08/20 10:00 Ecotrin - PO DAILY [facility] Atorvastatin Calcium 40 mg 01/07/20 22:00 01/07/20 21:39 Lipitor - PO 40 mg HS [facility] Administration Azithromycin 250 mg 01/07/20 10:00 01/07/20 10:36 Zithromax - PO 250 mg DAILY [facility] Administration Benzocaine/Menthol 1 each 01/07/20 08:25 Cepacol Lozenge - MM PRN PRN SORE THROAT Guaifenesin 10 ml 01/07/20 14:24 01/07/20 14:56 Robitussin - PO 10 ml Q6H PRN Administration COUGH Heparin Sodium (Porcine) 5,000 unit 01/06/20 22:00 01/08/20 06:44 Heparin - SQ 5,000 unit TID [facility] Administration Hydrochlorothiazide 25 mg 01/08/20 10:00 Hctz - PO DAILY [facility] Methylprednisolone Sodium Succinate 40 mg 01/06/20 22:00 01/07/20 21:39 Solu-Medrol - IVPUSH 40 mg BID [facility] Administration Pantoprazole Sodium 40 mg 01/07/20 10:00 01/07/20 10:36 Protonix - PO 40 mg DAILY [facility] Administration Fluticasone/Salmeterol 1 puff 01/07/20 22:00 01/07/20 21:39 Advair 100mcg/50mcg - IH 1 puff BID [facility] Administration Tramadol HCl 50 mg 01/07/20 11:56 01/07/20 12:13 Ultram - PO 50 mg Q6H PRN Administration PAIN LEVEL 7 - 10 ASSESSMENT/PLAN: Pt. 49 yo F PMH of HTN, Asthma, HLD, crack cocaine use, [place] ( s/p stent 2014), COPD, RA, Breast CA w/ mets (2014) , recent hospitalization for chest pain / EKG changes? at [facility] 12/18. Pt is stating that for 2 weeks she has had a productive cough.pt is admitted for acute copd exacerbation. Acute respiratory failure 2/2 Acute COPD Exacerbaion - CT chest reviewed - c/w solumedrol 40 BID - Azithromycin 250 daily x 3 days - Duonebs/ ventolin - pending Cultures - pending QTF - pulm consult - HIV Negative - respiratory panel pending - cepacol / robitussin--> changed both to standing to decrease coughin and ensure Pt. receives doses - Switched Advair to Symbicort. Hypertension - continue to monitor - hold BP meds as pt initially presented hypotensive - will need to confirm home medications Hx of ME, Hx of CVA - will confirm home meds - will obtain records from [facility] F/E/N - monitor lytes - low sodium diet DVT ppx: Hep GI ppx: protonix Dispo: med/surg Visit type - Emergency Visit Emergency Visit: Yes ED Registration Date: 01/06/20 Care time: The patient presented to the Emergency Department on the above date and was hospitalized for further evaluation of their emergent condition. - New Patient This patient is new to me today: No - Critical Care Critical Care patient: No - Discharge Referral Referred to [facility] Med P.C.: No ATTENDING PHYSICIAN STATEMENT I saw and evaluated the patient. I reviewed the resident's note and discussed the case with the resident. I agree with the resident's findings and plan as documented. SUBJECTIVE: OBJECTIVE: ASSESSMENT AND PLAN:
[2020-01-08] MEDS: FLUTICASONE/SALMETEROL 100 MCG/50 MCG DISKUS IH SCH (09:35)
[2020-01-08] MEDS: BENZOCAINE/MENTH/CETYLPYRD CL 1 EACH LOZENGE MM SCH ×5 (12:22→22:42)
[2020-01-08] MEDS ORDERED: DEXTROMETHORPHAN/PROMETHAZINE 15 MG/6.25 MG/5 ML SYRUP PO PRN (12:48)
--- NOTE | 2020-01-08 12:48 | PN ---
Progress Note (short form) - Note Progress Note: PULMONARY VSS/AFEBRILE/SPO2 96% R/A HARSH COUGH CONTINUES ANICTERIC SCATTERED B/L RHONCHI S1S2 BS+ NO EDEMA LABS/MEDS/NOTES/IMAGES REVIEWED IMP COPD/EXACERBATION EXACERBATION HEMOPTYSIS ? BRONCHITIS RLL NODULE H/O BREAST CA HLD HTN RA H/O CVA PLAN ABX O2 STEROIDS INHALED BRONCHODILATORS CULTURES F/U CHEST CT 3 MONTHS COUGH SUPPRESSION Leon ROME MD
--- NOTE | 2020-01-08 15:02 | PN ---
Teaching Attending Note Name of Resident: Omar Clarke ATTENDING PHYSICIAN STATEMENT I saw and evaluated the patient. I reviewed the resident's note and discussed the case with the resident. I agree with the resident's findings and plan as documented. SUBJECTIVE: No fever or chills. no N/V . she has generalized pain . and pain in her chest a nd Abd with cough. she requests strong pain meds, as tylenol and tramadol don't work . has diarrhea . No hemoptysis today OBJECTIVE: NAD , speaks in full sentences CV: RRR Lungs: generalized wheezing ( improved compared to yesterday) . no crackles or rales Abd: soft, TTP in L periumbilical area. no rebound . no guarding Ext: No edema or erythema. ASSESSMENT AND PLAN: 49 y/o lady with h/o CPD, HTn, astham, HLP, cocaine use,former smoker, metastatic breast cancer, [place], reported stroke, other medical problems, and recent hospitalization to [facility] for CP, who presented with cough, SOB , hemoptysis, and night sweats x 1-2 weeks . 1- Acute COPD exacerbation: Improved - cont steroids at current dose - cont nebs - add symbicort . - no hemoptysis today . Hb stable - QTF gold was never done. will not do as TB is not suspected - RVP pending - azithro ( day 3 /3) - follow sputum cx. - cont tramadol and tylenol for pain . avoid narcotics due to drug seeking behavior 2- Reported hx of melena: likely due to iron containing MVT pills. NL HB . - work up as out pt if no drop in HB 3- H/o HTN: HCTZ 4- Asymptomatic bacteruria. no urianry sx. diarrhea: send stool cx and c diff 5- H/o CVA ,CAD s/p [place] - cont ASA and statin 6- DVT PX : heparin GI px : PPI
[2020-01-08] MEDS: guaiFENesin 200 MG/10 ML 10 ML UNIT-DOSE CUPS PO SCH ×2 (16:17→22:32)
[2020-01-08] MEDS: BUDESONIDE/FORMETEROL FUMARATE 160/4.5 mcg INHALER IH SCH (22:33)
[2020-01-08] MEDS: ATORVASTATIN CA 40 MG TABLET (FP) PO SCH (22:33)
[2020-01-08] MEDS ORDERED: PT OWN MED DRAWER 7, Y5N ONE (22:52)
[2020-01-09] MEDS: guaiFENesin 200 MG/10 ML 10 ML UNIT-DOSE CUPS PO SCH ×4 (04:00→22:00)
[2020-01-09] MEDS: BENZOCAINE/MENTH/CETYLPYRD CL 1 EACH LOZENGE MM SCH ×6 (04:51→22:00)
[2020-01-09] MEDS: HEPARIN NA (PORCINE) 5,000 UNITS/ML 1ML VIAL SQ SCH ×3 (06:02→22:00)
[2020-01-09] MEDS: ALBUTEROL SO4 2.5/IPRATROPIUM 0.5 INH SOL 3 ML VIAL.NEB. NEB SCH ×4 (07:30→20:38)
[2020-01-09] MEDS: PANTOPRAZOLE 40 MG TABLET PO SCH (09:21)
[2020-01-09] MEDS: ASPIRIN COATED 81 MG TABLET.EC PO SCH (09:22)
[2020-01-09] MEDS: HYDROCHLOROTHIAZIDE 25 MG TABLET (FP) PO SCH (09:22)
[2020-01-09] MEDS: AZITHROMYCIN 250 MG TABLET PO SCH (09:22)
[2020-01-09] MEDS: methylPREDNISolone NA SUCC 40 MG/1 ML VIAL IVPUSH SCH ×2 (09:22→22:00)
[2020-01-09] MEDS ORDERED: PT OWN MED DRAWER 7, Y5N ONE (09:33)
[2020-01-09] MEDS: traMADol HCL 50 MG TABLET PO PRN ×2 (09:34→22:07)
[2020-01-09] MEDS: BUDESONIDE/FORMETEROL FUMARATE 160/4.5 mcg INHALER IH SCH ×2 (09:38→22:01)
[2020-01-09] MEDS: ACETAMINOPHEN 325 MG TABLET (FP) PO PRN ×2 (12:21→22:08)
--- NOTE | 2020-01-09 13:55 | PN ---
Progress Note (short form) - Note Progress Note: PULMONARY VSS/AFEBRILE/SPO2 96% R/A HARSH COUGH IS LESS ANICTERIC SCATTERED B/L RHONCHI S1S2 BS+ NO EDEMA LABS/MEDS/NOTES/IMAGES REVIEWED IMP COPD/EXACERBATION EXACERBATION HEMOPTYSIS ? BRONCHITIS RLL NODULE H/O BREAST CA HLD HTN RA H/O CVA PLAN ABX O2 STEROIDS TO TAPER INHALED BRONCHODILATORS CULTURES F/U CHEST CT 3 MONTHS COUGH SUPPRESSION Leon ROME MD
--- NOTE | 2020-01-09 15:58 | PN ---
Progress Note (short form) - Note Progress Note: Subjective: No fever or chills. SOB improved. cont to have cough. generalized body aches . hemoptysis once last night . Objective: Vital Signs: Last Vital Signs Temp Pulse Resp BP Pulse Ox 97.4 F L 88 18 129/83 96 01/09/20 15:31 01/09/20 15:31 01/09/20 15:31 01/09/20 15:31 01/09/20 09:00 Physical Exam: NAD , speaks in full sentences. + cough CV: RRR Lungs: decreased wheezing . . no crackles or rales Ext: No edema or erythema. ASSESSMENT AND PLAN: 49 y/o lady with h/o CPD, HTn, astham, HLP, cocaine use,former smoker, metastatic breast cancer, [place], reported stroke, other medical problems, and recent hospitalization to [facility] for CP, who presented with cough, SOB , hemoptysis, and night sweats x 1-2 weeks . 1- Acute COPD exacerbation: Improved - cont steroids at current dose. - cont nebs - Cont symbicort . - Hemoptysis improved - RVP pending - Sputum cx with yeast. - cont tramadol and tylenol for pain. avoid narcotics due to drug seeking behavior and h/o drug use 2- Reported hx of melena: likely due to iron containing MVT pills. NL HB . - work up as out pt if no drop in HB 3- H/o HTN: HCTZ 4- Diarrhea : resolved .c diff neg 5- H/o CVA ,CAD s/p [place] - cont ASA and statin 6- DVT PX : heparin GI px: PPI Visit type - Emergency Visit Emergency Visit: Yes ED Registration Date: 01/06/20 Care time: The patient presented to the Emergency Department on the above date and was hospitalized for further evaluation of their emergent condition. - New Patient This patient is new to me today: No - Critical Care Critical Care patient: No
[2020-01-09] MEDS ORDERED: SODIUM CHLORIDE NASAL SPRAY 44 ML BOTTLE NS PRN (16:00)
[2020-01-09] MEDS: ATORVASTATIN CA 40 MG TABLET (FP) PO SCH (22:00)
[2020-01-09] MEDS: ALBUTEROL SO4 0.083% IH SOL 2.5 MG/3 ML VIAL.NEB. NEB PRN (23:00)
[2020-01-10] MEDS: BENZOCAINE/MENTH/CETYLPYRD CL 1 EACH LOZENGE MM SCH ×6 (02:45→21:59)
[2020-01-10] MEDS: guaiFENesin 200 MG/10 ML 10 ML UNIT-DOSE CUPS PO SCH ×2 (02:48→09:53)
[2020-01-10] MEDS: HEPARIN NA (PORCINE) 5,000 UNITS/ML 1ML VIAL SQ SCH ×3 (05:46→21:59)
[2020-01-10] MEDS ORDERED: PT OWN MED DRAWER 7, Y5N ONE ×2 (06:42→09:01)
[2020-01-10] MEDS: ALBUTEROL SO4 2.5/IPRATROPIUM 0.5 INH SOL 3 ML VIAL.NEB. NEB SCH ×4 (07:20→20:29)
[2020-01-10] MEDS: ACETAMINOPHEN 325 MG TABLET (FP) PO PRN ×2 (09:54→21:58)
[2020-01-10] MEDS: ASPIRIN COATED 81 MG TABLET.EC PO SCH (09:55)
[2020-01-10] MEDS: HYDROCHLOROTHIAZIDE 25 MG TABLET (FP) PO SCH (09:55)
[2020-01-10] MEDS: PANTOPRAZOLE 40 MG TABLET PO SCH (10:08)
[2020-01-10] MEDS: BUDESONIDE/FORMETEROL FUMARATE 160/4.5 mcg INHALER IH SCH ×2 (10:08→21:59)
[2020-01-10] MEDS: methylPREDNISolone NA SUCC 40 MG/1 ML VIAL IVPUSH SCH ×2 (10:08→21:59)
--- NOTE | 2020-01-10 10:55 | PN ---
Progress Note (short form) - Note Progress Note: PULMONARY More short of breath today with cough and wheezing. No fevers. Vital Signs Period Temp Pulse Resp BP Sys/Gibson Pulse Ox Last 24 Hr 97.3 F-97.8 F 88-109 18-21 121-150/83-100 96-96 Gen: anxious in chair Heart: RRR Lung: bilateral rhonchi, wheezes Abd: soft, nontender Ext: no edema CBC, BMP 01/08/20 06:30 01/08/20 06:30 Active Medications Acetaminophen (Tylenol -) 650 mg PO Q6H PRN PRN Reason: Fever Or Pain 1-5 Last Admin: 01/10/20 09:54 Dose: 650 mg Documented by: Albuterol Sulfate (Ventolin 0.083% Nebulizer Soln -) 1 amp NEB Q1H PRN PRN Reason: SHORT OF BREATH/WHEEZING Last Admin: 01/09/20 23:00 Dose: 1 amp Documented by: Albuterol/Ipratropium (Duoneb -) 1 amp NEB RQID [facility] Last Admin: 01/10/20 07:20 Dose: 1 amp Documented by: Aspirin (Ecotrin -) 81 mg PO DAILY [facility] Last Admin: 01/10/20 09:55 Dose: 81 mg Documented by: Atorvastatin Calcium (Lipitor -) 40 mg PO HS [facility] Last Admin: 01/09/20 22:00 Dose: 40 mg Documented by: Benzocaine/Menthol (Cepacol Lozenge -) 1 each MM Q4H [facility] Last Admin: 01/10/20 10:08 Dose: 1 each Documented by: Budesonide/Formoterol Fumarate (Symbicort 160/4.5mcg -) 2 puff IH BID [facility] Last Admin: 01/10/20 10:08 Dose: 2 puff Documented by: Guaifenesin (Robitussin -) 10 ml PO Q6H [facility] Last Admin: 01/10/20 09:53 Dose: 10 ml Documented by: Heparin Sodium (Porcine) (Heparin -) 5,000 unit SQ TID [facility] Last Admin: 01/10/20 05:46 Dose: 5,000 unit Documented by: Hydrochlorothiazide (Hctz -) 25 mg PO DAILY [facility] Last Admin: 01/10/20 09:55 Dose: 25 mg Documented by: Methylprednisolone Sodium Succinate (Solu-Medrol -) 40 mg IVPUSH BID [facility] Last Admin: 01/10/20 10:08 Dose: 40 mg Documented by: Pantoprazole Sodium (Protonix -) 40 mg PO DAILY [facility] Last Admin: 01/10/20 10:08 Dose: 40 mg Documented by: Promethazine HCl/Dextromethorphan (Phenergan-Dm Syrup -) 5 ml PO Q4H PRN PRN Reason: COUGH Last Admin: 01/08/20 14:33 Dose: 5 ml Documented by: Sodium Chloride ([place] Nasal [place] -) 2 spray NS TID PRN PRN Reason: NASAL CONGESTION Last Admin: 01/09/20 18:28 Dose: 2 sprays Documented by: Tramadol HCl (Ultram -) 50 mg PO Q6H PRN PRN Reason: PAIN LEVEL 7 - 10 Last Admin: 01/09/20 22:07 Dose: 50 mg Documented by: A/P Acute Asthma/COPD Exacerbation Hemoptysis Lung Nodule h/o Breast Ca HTN Hyperlipidemia Rheumatoid Arthritis h/o CVA - continue medrol - inhaled bronchodilators standing and PRN - O2 to keep SpO2 >90% - outpt f/u of chest CT in 3 months - DVT prophylaxis
[2020-01-10] MEDS ORDERED: guaiFENesin/CODEINE 10 ML UNIT-DOSE CUPS PO PRN (11:41)
--- NOTE | 2020-01-10 12:22 | PN ---
Physical Exam: SUBJECTIVE: Patient seen and examined at bedside. pt states she is feeling very sad as today is her brothers . she states that her cough is improved and that her chest pain is getting better. she denies hemoptysis but endorses thick green sputum OBJECTIVE: Vital Signs Period Temp Pulse Resp BP Sys/Gibson Pulse Ox Last 24 Hr 97.3 F-97.8 F 88-109 18-21 121-150/83-100 96-96 GENERAL: The patient is awake, alert, and fully oriented, in no acute distress. HEAD: Normal with no signs of trauma. ENT: pharyngeal erythema improving LUNGS: Breath sounds equal, scattererd wheezes R> L, no accessory muscle use. HEART: Regular rate and rhythm, S1, S2 + systolic murmur ABDOMEN: Soft, mildly tender to palpation at RUQ, epigastric, nondistended, normoactive bowel sounds, no guarding EXTREMITIES: 2+ pulses, warm, well-perfused, no edema. SKIN: Warm, dry, normal turgor, no rashes or lesions noted Current Medications Acetaminophen (Tylenol -) 650 mg PO Q6H PRN PRN Reason: Fever Or Pain 1-5 Last Admin: 01/10/20 09:54 Dose: 650 mg Documented by: Albuterol Sulfate (Ventolin 0.083% Nebulizer Soln -) 1 amp NEB Q1H PRN PRN Reason: SHORT OF BREATH/WHEEZING Last Admin: 01/09/20 23:00 Dose: 1 amp Documented by: Albuterol/Ipratropium (Duoneb -) 1 amp NEB RQID [facility] Last Admin: 01/10/20 11:49 Dose: 1 amp Documented by: Aspirin (Ecotrin -) 81 mg PO DAILY [facility] Last Admin: 01/10/20 09:55 Dose: 81 mg Documented by: Atorvastatin Calcium (Lipitor -) 40 mg PO HS [facility] Last Admin: 01/09/20 22:00 Dose: 40 mg Documented by: Benzocaine/Menthol (Cepacol Lozenge -) 1 each MM Q4H [facility] Last Admin: 01/10/20 10:08 Dose: 1 each Documented by: Budesonide/Formoterol Fumarate (Symbicort 160/4.5mcg -) 2 puff IH BID [facility] Last Admin: 01/10/20 10:08 Dose: 2 puff Documented by: Guaifenesin/Codeine Phosphate (Robitussin Ac -) 10 ml PO Q8H PRN PRN Reason: COUGH Heparin Sodium (Porcine) (Heparin -) 5,000 unit SQ TID [facility] Last Admin: 01/10/20 05:46 Dose: 5,000 unit Documented by: Hydrochlorothiazide (Hctz -) 25 mg PO DAILY [facility] Last Admin: 01/10/20 09:55 Dose: 25 mg Documented by: Methylprednisolone Sodium Succinate (Solu-Medrol -) 40 mg IVPUSH BID [facility] Last Admin: 01/10/20 10:08 Dose: 40 mg Documented by: Pantoprazole Sodium (Protonix -) 40 mg PO DAILY [facility] Last Admin: 01/10/20 10:08 Dose: 40 mg Documented by: Promethazine HCl/Dextromethorphan (Phenergan-Dm Syrup -) 5 ml PO Q4H PRN PRN Reason: COUGH Last Admin: 01/08/20 14:33 Dose: 5 ml Documented by: Sodium Chloride ([place] Nasal [place] -) 2 spray NS TID PRN PRN Reason: NASAL CONGESTION Last Admin: 01/09/20 18:28 Dose: 2 sprays Documented by: Tramadol HCl (Ultram -) 50 mg PO Q6H PRN PRN Reason: PAIN LEVEL 7 - 10 Last Admin: 01/09/20 22:07 Dose: 50 mg Documented by: Chest CT: Impression: Solitary noncalcified 0.5 x 0.3 cm right lower lobe subpleural pulmonary nodule. Correlation with 3 month follow-up CT is suggested unless a prior CT study is available from a different facility for direct comparison. Small right apical subpleural bulla. ASSESSMENT/PLAN: 49 yo F PMH of HTN, Asthma, HLD, crack cocaine use, [place] ( s/p stent 2014), COPD, RA, breast Ca w/ mets ( 2014) , recent hospitalization for chest pain / EKG changes? at [facility] 12/18. Pt is stating that for 2 weeks she has had a productive cough.pt is admitted for acute copd exacerbation Acute respiratory failure 2/2 Acute COPD Exacerbaion - CT chest reviewed - c/w solumedrol 40 BID - s/p Azithromycin 250 daily x 3 days - Duonebs/ ventolin /symbicort - Cultures, normal resp leona - pulm consult -HIV testing negative - respiratory panel pending - cepacol/ robitussin Hypertension -c/w HCTZ 25 Hx of [place], Hx of CVA c/w lipitor, asa F/E/N - monitor lytes - low sodium diet DVT ppx: Hep GI ppx: protonix Dispo: med/surg Visit type - Emergency Visit Emergency Visit: No - New Patient This patient is new to me today: No - Critical Care Critical Care patient: No - Discharge Referral Referred to [facility] Med P.C.: No ATTENDING PHYSICIAN STATEMENT I saw and evaluated the patient. I reviewed the resident's note and discussed the case with the resident. I agree with the resident's findings and plan as documented. SUBJECTIVE: OBJECTIVE: ASSESSMENT AND PLAN:
--- NOTE | 2020-01-10 14:09 | PN ---
Teaching Attending Note Name of Resident: Sera Benavides ATTENDING PHYSICIAN STATEMENT I saw and evaluated the patient. I reviewed the resident's note and discussed the case with the resident. I agree with the resident's findings and plan as documented. SUBJECTIVE: No fever or chills. no REICH . cont to have cough , and cp and abd pain with cough, but SOB has improved No hemoptysis OBJECTIVE: NAD, speaks in full sentences. + cough CV: RRR Lungs: generalized wheezing. no crackles or rales Ext: No edema or erythema. Abd: soft, Nd. a small hematoma ( 1.5 cm ) under skin at site of heparin injections in LLQ. tender to touch there ASSESSMENT AND PLAN: 49 y/o lady with h/o CPD, HTN, asthma, HLP, cocaine use,former smoker, metastatic breast cancer, [place], reported stroke, other medical problems, and recent hospitalization to [facility] for CP, who presented with cough, SOB , hemoptysis, and night sweats x 1-2 weeks . 1- Acute COPD exacerbation: Improved - cont steroids at current dose. - cont nebs - Cont symbicort . - Hemoptysis improved - RVP pending - cont tramadol and tylenol for pain. - repeat CT in 3 months - leukocytosis is likely due to steroids 2- Reported hx of melena: likely due to iron containing MVT pills. NL HB . - work up as out pt if no drop in HB 3- H/o HTN: HCTZ 4- Diarrhea : resolved .c diff neg 5- H/o CVA ,CAD s/p [place] - cont ASA and statin 6- DVT PX : heparin GI px: PPI A
[2020-01-10] MEDS: traMADol HCL 50 MG TABLET PO PRN (14:49)
[2020-01-10] MEDS: ATORVASTATIN CA 40 MG TABLET (FP) PO SCH (21:59)
[2020-01-10] MEDS: ALBUTEROL SO4 0.083% IH SOL 2.5 MG/3 ML VIAL.NEB. NEB PRN (22:37)
[2020-01-11] MEDS: BENZOCAINE/MENTH/CETYLPYRD CL 1 EACH LOZENGE MM SCH ×3 (01:36→08:59)
[2020-01-11] MEDS: HEPARIN NA (PORCINE) 5,000 UNITS/ML 1ML VIAL SQ SCH (05:31)
[2020-01-11 07:58] LABS: HEMOGLOBIN 11.9 GM/dL (10.7-15.3); MCH 29.8 pg (25.7-33.7); MCHC 33.2 g/dl (32.0-36.0); MEAN CELL VOLUME 89.9 fl (80-96); MEAN PLT VOLUME 8.6 fl (7.5-11.1); PLATELET COUNT 253 K/MM3 (134-434); RDW 14.2 % (11.6-15.6); WHITE BLOOD COUNT 8.8 K/mm3 (4.0-10.0)
[2020-01-11 08:23] LABS: CALCIUM 9.1 mg/dL (8.5-10.1); CREATININE 0.8 mg/dL (0.55-1.3); POTASSIUM 4.1 mmol/L (3.5-5.1)
[2020-01-11] MEDS: ALBUTEROL SO4 2.5/IPRATROPIUM 0.5 INH SOL 3 ML VIAL.NEB. NEB SCH ×2 (08:37→11:45)
[2020-01-11] MEDS: BUDESONIDE/FORMETEROL FUMARATE 160/4.5 mcg INHALER IH SCH (09:00)
[2020-01-11] MEDS: methylPREDNISolone NA SUCC 40 MG/1 ML VIAL IVPUSH SCH (09:00)
[2020-01-11] MEDS: ASPIRIN COATED 81 MG TABLET.EC PO SCH (09:00)
[2020-01-11] MEDS: PANTOPRAZOLE 40 MG TABLET PO SCH (09:00)
[2020-01-11] MEDS: HYDROCHLOROTHIAZIDE 25 MG TABLET (FP) PO SCH (09:00)
[2020-01-11] MEDS: traMADol HCL 50 MG TABLET PO PRN (09:07)
[2020-01-11 09:09] VITALS: TEMP 97.8
[2020-01-11 09:35] VITALS: BP 111/70; PULSE 99
--- NOTE | 2020-01-11 11:11 | PN ---
Progress Note (short form) - Note Progress Note: PULMONARY Breathing better today. Still with nonproductive cough and chest tightness. No fevers. Vital Signs Period Temp Pulse Resp BP Sys/Gibson Pulse Ox Last 24 Hr 97.8 F-98.4 F 70-99 16-20 111-136/63-81 96-99 Gen: NAD in chair Heart: RRR Lung: less rhonchi Abd: soft, nontender Ext: no edema CBC, BMP 01/11/20 07:20 01/11/20 07:20 Active Medications Acetaminophen (Tylenol -) 650 mg PO Q6H PRN PRN Reason: Fever Or Pain 1-5 Last Admin: 01/10/20 21:58 Dose: 650 mg Documented by: Albuterol Sulfate (Ventolin 0.083% Nebulizer Soln -) 1 amp NEB Q1H PRN PRN Reason: SHORT OF BREATH/WHEEZING Last Admin: 01/10/20 22:37 Dose: 1 amp Documented by: Albuterol/Ipratropium (Duoneb -) 1 amp NEB RQID [facility] Last Admin: 01/11/20 08:37 Dose: 1 amp Documented by: Aspirin (Ecotrin -) 81 mg PO DAILY [facility] Last Admin: 01/11/20 09:00 Dose: 81 mg Documented by: Atorvastatin Calcium (Lipitor -) 40 mg PO HS [facility] Last Admin: 01/10/20 21:59 Dose: 40 mg Documented by: Benzocaine/Menthol (Cepacol Lozenge -) 1 each MM Q4H [facility] Last Admin: 01/11/20 08:59 Dose: 1 each Documented by: Budesonide/Formoterol Fumarate (Symbicort 160/4.5mcg -) 2 puff IH BID [facility] Last Admin: 01/11/20 09:00 Dose: 2 puff Documented by: Guaifenesin/Codeine Phosphate (Robitussin Ac -) 10 ml PO Q8H PRN PRN Reason: COUGH Last Admin: 01/11/20 08:59 Dose: 10 ml Documented by: Heparin Sodium (Porcine) (Heparin -) 5,000 unit SQ TID [facility] Last Admin: 01/11/20 05:31 Dose: 5,000 unit Documented by: Hydrochlorothiazide (Hctz -) 25 mg PO DAILY [facility] Last Admin: 01/11/20 09:00 Dose: 25 mg Documented by: Methylprednisolone Sodium Succinate (Solu-Medrol -) 40 mg IVPUSH BID [facility] Last Admin: 01/11/20 09:00 Dose: 40 mg Documented by: Pantoprazole Sodium (Protonix -) 40 mg PO DAILY [facility] Last Admin: 01/11/20 09:00 Dose: 40 mg Documented by: Promethazine HCl/Dextromethorphan (Phenergan-Dm Syrup -) 5 ml PO Q4H PRN PRN Reason: COUGH Last Admin: 01/08/20 14:33 Dose: 5 ml Documented by: Sodium Chloride ([place] Nasal [place] -) 2 spray NS TID PRN PRN Reason: NASAL CONGESTION Last Admin: 01/09/20 18:28 Dose: 2 sprays Documented by: Tramadol HCl (Ultram -) 50 mg PO Q6H PRN PRN Reason: PAIN LEVEL 7 - 10 Last Admin: 01/11/20 09:07 Dose: 50 mg Documented by: A/P Acute Asthma/COPD Exacerbation Hemoptysis Lung Nodule h/o Breast Ca HTN Hyperlipidemia Rheumatoid Arthritis h/o CVA - can change steroids to PO prednisone 40mg daily and taper as outpt - inhaled bronchodilators standing and PRN - O2 to keep SpO2 >90% - outpt f/u of chest CT in 3 months - outpt PFTs - DVT prophylaxis
--- NOTE | 2020-01-11 14:22 | PN ---
Teaching Attending Note Name of Resident: Sera Benavides ATTENDING PHYSICIAN STATEMENT I saw and evaluated the patient. I reviewed the resident's note and discussed the case with the resident. I agree with the resident's findings and plan as documented. SUBJECTIVE: No fever or chills. No N/V. NO SOB. cough has improved OBJECTIVE: NAD, speaks in full sentences. occasional cough CV: RRR Lungs: No wheezing, no crackles or wheezes. Ext: No edema or erythema. ASSESSMENT AND PLAN: 49 y/o lady with h/o CPD, HTN, asthma, HLP, cocaine use,former smoker, metastatic breast cancer, [place], reported stroke, other medical problems, and recent hospitalization to [facility] for CP, who presented with cough, SOB , hemoptysis, and night sweats x 1-2 weeks . 1- Acute COPD exacerbation: Improved - switch to po prednsione . - cont nebs - Cont symbicort . - Hemoptysis resolved - RVP still pending at this point - repeat CT in 3 months - leukocytosis resolved 2- Reported hx of melena: likely due to iron containing MVT pills. NL HB.. f.u with PCP as out pt 3- H/o HTN: HCTZ 4- H/o CVA ,CAD s/p [place] - cont ASA and statin dc home today
--- NOTE | 2020-01-11 14:54 | DS ---
Physical Exam: SUBJECTIVE: Patient seen and examined at bedside. pt states her symptoms have improved. OBJECTIVE: Vital Signs Period Temp Pulse Resp BP Sys/Gibson Pulse Ox Last 24 Hr 97.8 F-98.4 F 70-99 16-20 111-128/70-81 96-99 PHYSICAL EXAM GENERAL: The patient is awake, alert, and fully oriented, in no acute distress. HEAD: Normal with no signs of trauma. EYES: extraocular movements intact ENT: oropharynx clear without exudates, moist mucous membranes. LUNGS: Breath sounds equal, clear to auscultation bilaterally, no accessory muscle use. HEART: Regular rate and rhythm, S1, S2 ABDOMEN: Soft, nontender, nondistended, normoactive bowel sounds, no guarding EXTREMITIES: 2+ pulses, warm, well-perfused, no edema. NEUROLOGICAL: Cranial nerves II through XII grossly intact. Normal speech LABS Laboratory Results - last 24 hr 01/11/20 01/11/20 07:20 07:20 WBC 8.8 RBC 4.00 Hgb 11.9 Hct 36.0 MCV 89.9 MCH 29.8 MCHC 33.2 RDW 14.2 Plt Count 253 MPV 8.6 Sodium 140 Potassium 4.1 Chloride 103 Carbon Dioxide 29 Anion Gap 8 BUN 21.0 H Creatinine 0.8 Est GFR (CKD-EPI)AfAm 101.04 Est GFR (CKD-EPI)NonAf 87.18 Random Glucose 116 H Calcium 9.1 HOSPITAL COURSE: Date of Admission:01/06/[address]: Impression: Solitary noncalcified 0.5 x 0.3 cm right lower lobe subpleural pulmonary nodule. Correlation with 3 month follow-up CT is suggested unless a prior CT study is available from a different facility for direct comparison. Small right apical subpleural bulla. ASSESSMENT/PLAN: 49 yo F PMH of HTN, Asthma, HLD, crack cocaine use, [place] ( s/p stent 2014), COPD, RA, breast Ca w/ mets ( 2014) , recent hospitalization for chest pain / EKG changes? at [facility] 12/18. Pt is stating that for 2 weeks she has had a productive cough.pt is admitted for acute copd exacerbation. pt was on solumedrol 40 BID x 5 days, azithro x 3 d. pt was on duonebs, ventolin, symbicort. pt received support tx of robitussin, cepacol. pt tested negative for flu, RSV. pt had CT chest, which findings are above. pt was evaluated by pulm. pt should have a rpt chest CT in 3 months. pt was also recommended to f/u with oncologist 2/2 breast ca history. pt was maintained on home meds for additional chronic conditions. pt was discharged with 12 day prednisone taper . pt should continue to use inhalers as prescribed. pt should f/u with pulm, PMD, onc. Date of Discharge: 01/11/20 Minutes to complete discharge: 36 Discharge Summary Problems reviewed: Yes Reason For Visit: SOB COPD Current Active Problems Asthma with COPD with exacerbation (Acute) Cough (Acute) Shortness of breath (Acute) COPD (chronic obstructive pulmonary disease) (Chronic) COPD exacerbation (Chronic) Condition: Improved - Instructions Diet, Activity, Other Instructions: You came into the hospital for cough and weakness. You had a Catscan of your chest showing that you have a nodule in your lung. You were evaluated by a treasury management sales consultant and recommended to have a repeat chest catscan in 3 months. Please continue to take Prednisone for 12 days as follows : On 01/11-01/13 take Prednisone 40 mg ( 4 of the 10 mg pills) once a day On 01/14-01/16 take Prednisone 30 mg ( 3 of the 10 mg pills) once a day On 01/17-01/19 take Prednisone 20 mg ( 2 of the 10 mg pills ) once a day On 01/20-01/22 take Prednisone 10 mg for 3 days. once a day. Please continue your home medications as prescribed Please follow up with your primary medical physician, Dr. Ariza , in 1 week to monitor your improvement. You need to recheck your thyroid panel in 4 weeks. Please follow up with your oncologist to monitor your breast cancer Please follow up with your treasury management sales consultant, Dr. Vale, to monitor your COPD and Asthma It is extremely important for your recovery that you quit smoking. If you have any new, worsening, or concerning symptoms please return to the ED or call 911. follow up withyour primary care regarding black stool . you might need referral to GI. Referrals: Blayne Vale MD, [Staff Physician] - Disposition: HOME - Home Medications Comprehensive Discharge Medication List: Ambulatory Orders Albuterol 0.083% Nebulizer Brianne [Ventolin 0.083% Nebulizer Soln -] 1 vial PO PRN 01/07/20 Albuterol Sulfate [Albuterol Sulfate Hfa] 2 puff PRN 01/07/20 Aspirin [Aspirin EC] 81 mg PO DAILY 01/07/20 Atorvastatin Ca [Lipitor] 40 mg PO DAILY 01/07/20 Budesonide/Formeterol Fumarate [SYMBICORT 160/4.5mcg -] 2 puff ASDIR 01/07/20 Hydrochlorothiazide 25 mg PO DAILY 01/07/20 Montelukast Na [Singulair -] 10 mg PO DAILY 01/07/20 Trazodone HCl 150 mg PO DAILY 01/07/20 Pantoprazole Sodium [Protonix -] 40 mg PO DAILY 20 Days #20 tablet.ec 01/11/20 Prednisone See Taper PO DAILY 12 Days #30 tablet 01/11/20 This patient is new to me today: No Emergency Visit: No Critical Care patient: No - Discharge Referral Referred to [facility] Med P.C.: No ATTENDING PHYSICIAN STATEMENT I saw and evaluated the patient. I reviewed the resident's note and discussed the case with the resident. I agree with the resident's findings and plan as documented. SUBJECTIVE: OBJECTIVE: ASSESSMENT AND PLAN:
== END 2020-01-11 15:01 | disposition home or self-care (01) | DRG 140 ==
LOC: JER 11:59 → JERBED 17:40 → J8W 01-07 01:21 → J6S 01-07 03:51
PROVIDERS: ADMIT Internal Medicine; ATTEND Internal Medicine
DX: J44.1 Chronic obstructive pulmonary disease with (acute) exacerbation (principal); E78.5 Hyperlipidemia, unspecified; I10 Essential (primary) hypertension; J45.909 Unspecified asthma, uncomplicated; I25.2 Old myocardial infarction; J44.9 Chronic obstructive pulmonary disease, unspecified; D72.829 Elevated white blood cell count, unspecified; F14.10 Cocaine abuse, uncomplicated; G81.91 Hemiplegia, unspecified affecting right dominant side; J96.00 Acute respiratory failure, unspecified whether with hypoxia or hypercapnia; I95.9 Hypotension, unspecified; M06.9 Rheumatoid arthritis, unspecified; J40 Bronchitis, not specified as acute or chronic; R19.7 Diarrhea, unspecified; I25.10 Atherosclerotic heart disease of native coronary artery without angina pectoris; R91.1 Solitary pulmonary nodule; F14.90 Cocaine use, unspecified, uncomplicated; Z87.891 Personal history of nicotine dependence; Z85.3 Personal history of malignant neoplasm of breast
CPT/HCPCS: 36415; 71046-TC-FY; 71260-TC; 80048; 80053; 81003; 82550; 82553; 83605; 83735; 84100; 84443; 84484; 85025; 85027; 85610; 85730; 87040; 87045; 87046; 87070; 87086; 87186; 87205; 87324; 87389; 87449; 87633; 87804; 93005; 93010; 94640; 99285-25; J0131; J1644; Q2036; Q9967

== ENCOUNTER 2020-05-15 16:41 | Emergency (ER) | payer OTHER ==
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
[2020-05-15 16:54] VITALS: BP 105/63; PULSE 86; TEMP 98.5; BMI 24.3
[2020-05-15] MEDS ORDERED: ACETAMINOPHEN 500 MG TABLET (FP) PO ONE (17:09)
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
[2020-05-15] MEDS ORDERED: ACETAMINOPHEN 500 MG TABLET (FP) ONE (17:21)
[2020-05-15 18:31] LABS: BASO % 0.7 % (0-2.0); EOS % 1.3 % (0-4.5); HEMATOCRIT 38.2 % (32.4-45.2); HEMOGLOBIN 12.7 GM/dL (10.7-15.3); LYMPH % 18.9 % (8-40); MCH 30.6 pg (25.7-33.7); MCHC 33.1 g/dl (32.0-36.0); MEAN CELL VOLUME 92.3 fl (80-96); MEAN PLT VOLUME 8.3 fl (7.5-11.1); MONO % 7.8 % (3.8-10.2); NEUT % 71.3 % (42.8-82.8); PLATELET COUNT 268 K/MM3 (134-434); RBC 4.14 M/mm3 (3.60-5.2); RDW 14.4 % (11.6-15.6); WHITE BLOOD COUNT 9.3 K/mm3 (4.0-10.0)
[2020-05-15 18:39] LABS: INR 1.06 (0.83-1.09); PROTHROMBIN TIME (PATIENT) 12.5 SEC (9.7-13.0)
[2020-05-15 18:55] LABS: ALBUMIN 3.6 g/dl (3.4-5.0); ALK PHOS 117 U/L (45-117); ANION GAP 7 MMOL/L (8-16); BILIRUBIN,TOTAL 0.4 mg/dL (0.2-1); BLOOD UREA NITROGEN 18.6 mg/dL (7-18); CALCIUM 9.3 mg/dL (8.5-10.1); CHLORIDE 107 mmol/L (98-107); CO2 25 mmol/L (21-32); CREATININE 1.1 mg/dL (0.55-1.3); GLUCOSE,RANDOM 90 mg/dL (74-106); POTASSIUM 4.5 mmol/L (3.5-5.1); SGOT/AST 26 U/L (15-37); SGPT/ALT 29 U/L (13-61); SODIUM 140 mmol/L (136-145); TOT PROT 7.2 g/dl (6.4-8.2)
--- NOTE | 2020-05-16 10:06 | EKG ---
Test Reason : Blood Pressure : / mmHG Vent. Rate : 076 BPM Atrial Rate : 076 BPM P-R Int : 148 ms QRS Dur : 080 ms QT Int : 406 ms P-R-T Axes : 078 078 069 degrees QTc Int : 456 ms NORMAL SINUS RHYTHM BIATRIAL ENLARGEMENT POSSIBLE ANTERIOR INFARCT (CITED ON OR BEFORE 06-JAN-2020) ABNORMAL ECG WHEN COMPARED WITH ECG OF 06-JAN-2020 12:12, NO SIGNIFICANT CHANGE WAS FOUND Confirmed by MD ARZOLA MOYSES ([id number]) on 05/16/2020 10:06:17 AM Referred By: Confirmed By:HCUYITA ARZOLA MD
== END 2020-05-15 19:01 | disposition home or self-care (01) ==
LOC: JERFT 16:41
DX: S40.811A Abrasion of right upper arm, initial encounter (principal); M94.0 Chondrocostal junction syndrome [Tietze]
CPT/HCPCS: 36415; 71046-TC-FY; 80053; 82550; 82553; 84484; 85025; 85610; 93005; 93010; 99285-25

== ENCOUNTER 2021-12-17 16:36 | Emergency (ER) | payer OTHER ==
[2021-12-17 16:52] VITALS: TEMP 97.9; BMI 26.6
[2021-12-17 18:48] LABS: BASO % 0.9 % (0-2.0); EOS % 2.4 % (0-4.5); HEMATOCRIT 41.4 % (32.4-45.2); HEMOGLOBIN 13.9 GM/dL (10.7-15.3); LYMPH % 24.4 % (8-40); MCH 30.4 pg (25.7-33.7); MCHC 33.6 g/dl (32.0-36.0); MEAN CELL VOLUME 90.3 fl (80-96); MEAN PLT VOLUME 7.9 fl (7.5-11.1); MONO % 7.5 % (3.8-10.2); NEUT % 64.8 % (42.8-82.8); PLATELET COUNT 291 10^3/uL (134-434); RBC 4.58 M/mm3 (3.60-5.2); WHITE BLOOD COUNT 8.9 K/mm3 (4.0-10.0)
[2021-12-17 18:55] LABS: INR 1.09 (0.83-1.09); PROTHROMBIN TIME (PATIENT) 12.6 SEC (9.7-13.0)
[2021-12-17 18:58] LABS: ACTIVATED PTT 34.3 SECONDS (25.2-36.5)
[2021-12-17 19:15] LABS: ALBUMIN 3.5 g/dl (3.4-5.0); BLOOD UREA NITROGEN 20.7 mg/dL (7-18); CALCIUM 9.7 mg/dL (8.5-10.1)
[2021-12-17 19:18] LABS: CREATININE 0.8 mg/dL (0.55-1.3)
[2021-12-17 19:20] LABS: BILIRUBIN,TOTAL 0.3 mg/dL (0.2-1); TOT PROT 7.2 g/dl (6.4-8.2)
[2021-12-17] MEDS ORDERED: ACETAMINOPHEN 500 MG TABLET (FP) PO ONE (21:48)
[2021-12-17] MEDS ORDERED: CLINDAMYCIN HCL 150 MG CAPSULE (FP) PO ONE (21:48)
[2021-12-17] MEDS ORDERED: DALBAVANCIN HCL 1,500 MG in DEXTROSE 5%-WATER - 500 ML IVPB ONE (23:40)
[2021-12-18 01:29] VITALS: BP 110/76; PULSE 63
[2021-12-18 13:11] LABS: SARS-CoV-2 NAA Not Detected (Not Detected)
== END 2021-12-18 02:59 | disposition home or self-care (01) ==
LOC: JER 16:36
PROC: 3E0337Z Introduction of Electrolytic and Water Balance Substance into Peripheral Vein, Percutaneous Approach (ICD-10-PCS; principal; 2021-12-17)
DX: S92.355A Nondisplaced fracture of fifth metatarsal bone, left foot, initial encounter for closed fracture (principal); Y99.9 Unspecified external cause status
CPT/HCPCS: 36415; 73630-TC-LT; 80053; 83605; 85025; 85610; 85730; 86850; 86900; 86901; 87040; 93970-TC; 99285-25; C9803; J0875; U0003; U0005